=== PATIENT | female | born 1955 | race Caucasian/White ===

== ENCOUNTER → 2019-10-02 17:17 | Outpatient (CLI) | payer BC, SELFPAY ==
--- NOTE | ~2019-10-02 | MM_ITS ---
EXAMINATION: MM screening kike BI w lisa HISTORY: Screening mammogram TECHNIQUE: Craniocaudal and mediolateral oblique 3-D tomosynthesis images were obtained and synthetic 2-D images were generated. CAD analysis was submitted and interpreted. COMPARISON: 05/13/2016 bilateral digital screening mammogram BREAST PARENCHYMAL COMPOSITION: The breasts are heterogeneously dense, which may obscure small masses . FINDINGS: There is no evidence of suspicious mass, calcification, or architectural distortion to sugg est malignancy in either breast. There has been no suspicious interval change. IMPRESSION: 1. No mammographic evidence of malignancy. 2. Recommend routine screening mammography in one year. BI-RADS Category 1: Negative Reviewed, dictated and finalized at location A. SURGEON
== END ==
PROVIDERS: PCP Family Medicine; Visit Provider Physician Assistant
DX: Z12.31 Encounter for screening mammogram for malignant neoplasm of breast (principal)
CPT/HCPCS: 77063; 77067

== ENCOUNTER 2020-11-29 14:30 | Emergency (ER) | payer OTHER, BC, SELFPAY ==
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
[2020-11-29 14:41] VITALS: BP 107/73; PULSE 66; RESP 16; TEMP 36.2; O2SAT 100
== END 2020-11-29 15:39 | disposition home or self-care (01) ==
PROVIDERS: Emergency Provider Nurse Practitioner; PCP Family Medicine
DX: M54.2 Cervicalgia (principal); V67.5XXA Driver of heavy transport vehicle injured in collision with fixed or stationary object in traffic accident, initial encounter; Z87.891 Personal history of nicotine dependence; J44.9 Chronic obstructive pulmonary disease, unspecified; Z96.659 Presence of unspecified artificial knee joint; Z96.649 Presence of unspecified artificial hip joint
CPT/HCPCS: 72050; 99213; G0463

== ENCOUNTER 2022-03-24 14:21 | Outpatient (CLI) | payer OTHER, SELFPAY ==
--- NOTE | ~2022-03-24 | XR_ITS ---
EXAM: XR foot RT min 3V DATE: 03/24/2022 14:42 HISTORY: M79.671 - Pain in right foot . COMPARISON: None available. FINDINGS: Decreased mineralization. No fracture or dislocation. No lytic or blastic lesion. Mild deg enerative changes of first MTP joint and the tibiotalar articulation. Plantar enthesopathy. High arch . No erosion or periosteal change. Soft tissues within normal limits. IMPRESSION: No acute osseous finding in the right foot. Chronic and degenerative changes described ab ove. Reviewed, dictated and finalized at location K. IMPRESSION: No acute osseous finding in the right foot. Chronic and degenerativ e changes described above.
== END 2022-03-24 14:22 ==
LOC: MICIMG 14:23
PROVIDERS: PCP Family Medicine; Visit Provider Nurse Practitioner Family
DX: M79.671 Pain in right foot (principal)
CPT/HCPCS: 73630

== ENCOUNTER 2022-08-05 11:18 | Outpatient (CLI) | payer OTHER, SELFPAY ==
[2022-08-05 12:19] LABS: Influenza A QL RT-PCR Negative (Negative); Influenza B QL RT-PCR Negative (Negative); SARS-CoV-2 RNA PCR Positive
== END 2022-08-05 11:19 | disposition home or self-care (01) ==
LOC: ANHLAB 11:20
PROVIDERS: PCP Family Medicine; Visit Provider Physician Assistant
DX: U07.1 COVID-19 (principal)
CPT/HCPCS: 87636

== ENCOUNTER 2022-08-25 16:16 | Outpatient (CLI) | payer OTHER, SELFPAY ==
--- NOTE | ~2022-08-25 | XR_ITS ---
EXAM: XR lumbar spine min 4V DATE: 08/25/2022 16:49 HISTORY: M53.3 - Sacrococcygeal disorders, not elsewhere classified . COMPARISON: None available. FINDINGS: 5 nonrib-bearing lumbar-type vertebral bodies. Severe lumbar scoliosis. Pedicles intact. N ormal vertebral body alignment. Vertebral body heights preserved. Multilevel moderate-severe disc spa ce narrowing. Vacuum phenomenon at L1-2, L3-4, and L4-5. Multilevel marginal osteophytosis. Multileve l severe facet arthropathy and sclerosis. No pars defect. No fracture or dislocation. Incompletely vi sualized bilateral hip arthroplasties. IMPRESSION: Multilevel severe degenerative disc disease. Multilevel severe facet arthropathy. Reviewed, dictated and finalized at location K. E SALES PERSON IMPRESSION: Multilevel severe degenerative disc disease. Multilevel severe face t arthropathy.
--- NOTE | ~2022-08-25 | XR_ITS ---
EXAM: XR sacrum coccyx min 2V DATE: 08/25/2022 16:49 HISTORY: M53.3 - Sacrococcygeal disorders, not elsewhere classified . COMPARISON: None available. FINDINGS: Severe degenerative disc disease in the lower lumbar spine. Minimal degenerative change in the bilateral SI joints. No acute fracture or dislocation. Chronic appearing posterior displacement of S5 relative to S4. Mild osteitis pubis. Partially visualized bilateral hip arthroplasties. Pelvic phleboliths. IMPRESSION: Posterior dislocation of S5, likely chronic unless accompanied by a history of trauma and acute pain/tenderness. Otherwise unremarkable radiographs of the sacrum and coccyx. Reviewed, dictated and finalized at location K. RACT COORDINATOR IMPRESSION: Posterior dislocation of S5, likely chronic unless accompanied by a history of trauma and acute pain/tenderness. Otherwise unremarkable radiograph s of the sacrum and coccyx.
== END 2022-08-25 16:17 | disposition home or self-care (01) ==
PROVIDERS: PCP Family Medicine; Visit Provider Physician Assistant
DX: M51.36 Other intervertebral disc degeneration, lumbar region (principal); M53.3 Sacrococcygeal disorders, not elsewhere classified; Z91.81 History of falling; X58.XXXA Exposure to other specified factors, initial encounter
CPT/HCPCS: 72110; 72220

== ENCOUNTER 2024-11-06 10:58 | Outpatient (CLI) | payer OTHER, SELFPAY ==
--- NOTE | ~2024-11-06 | XR_ITS ---
XR chest 2V 11/06/2024 11:17 Indication: Chronic obstructive pulmonary disease Procedure: 2 view chest Comparison: 09/18/2016 Findings: Heart size normal. There is right basilar atelectasis/scarring. No focal pneumonia, edema, pleural effusion or thorax. Impression: 1: Linear subsegmental atelectasis/scarring right lung base. Reviewed, dictated and finalized at location A. Impression: 1: Linear subsegmental atelectasis/scarring right lung base.
--- OUTSIDE RECORDS SUMMARY | 2024-11-06 12:48 | XMS_ITS | Referral Summary ---
Author Organization [facility] Address [address] [place] [address] Care Team Providers Care Packaging Mechanic Name Role Phone Mor Anderson MD Primary Care Provider Encounters Date Type Department Care Team Description 09/18/2024 2:30 PM WATERPROOFING SUPERVISOR Office Visit [facility] [address] [place] [address] Irwin Donaldson, PhD Depressive disorder, atypical (Primary Dx); Morbid obesity (HCC); BMI 40.0-44.9, adult (HCC); Osteoarthritis of multiple joints, unspecified osteoarthritis type; Primary hypertension; Hyperlipidemia, unspecified hyperlipidemia type 09/14/2024 Telephone [facility] Minimally Invasive Surgery [facility] [address] [place] [address] Viridiana West CMA from Last 3 Months Allergies No known active allergies Medications ALPRAZolam (XANAX) 1 mg tablet Take by mouth 3 (three) times a day as needed 02/14/2024 Active baclofen (LIORESAL) 10 mg tablet TAKE 1 TABLET BY MOUTH THREE TIMES A DAY NEEDED FOR MUSCLE SPASM 02/10/[address] (CYMBALTA) 60 mg capsule TAKE 1 CAPSULE BY MOUTH EVERY DAY FOR 90 DAYS 03/17/2024 Active gabapentin (NEURONTIN) 600 mg tablet Take 1 tablet (600 mg total) by mouth 3 (three) times a day 04/10/2024 Active pilocarpine (SALAGEN) 5 mg tablet TAKE 1 TABLET BY MOUTH FOUR TIMES DAILY FOR 90 DAYS 03/09/2024 Active traMADoL (ULTRAM) 50 mg tablet Take by mouth every 8 (eight) hours as needed 04/10/2024 Active pravastatin (PRAVACHOL) 40 mg tablet Take 1 tablet (40 mg total) by mouth daily 02/10/2024 Active zolpidem (AMBIEN) 10 mg tablet Take 1 tablet (10 mg total) by mouth nightly as needed 02/14/2024 Active levothyroxine (SYNTHROID) 125 mcg tablet Take 1 tablet (125 mcg total) by mouth daily 02/10/2024 Active metoprolol XL (TOPROL-XL) 50 mg extended release tablet Take 1 tablet (50 mg total) by mouth daily 04/04/2024 Active hydroxychloroqu ine (PLAQUENIL) 200 mg tablet TAKE 1 TABLET ORALLY TWICE A DAY 03/11/2024 Active Active Problems Problem Noted Date Diagnosed Date Morbid obesity 09/18/2024 Depressive disorder, atypical 09/18/2024 BMI 40.0-44.9, adult 05/10/2024 Social History Tobacco Use Types Packs/Day Years Used Date Smoking Tobacco: Former Cigarettes Q uit: 1985 Tobacco Cessation:Counseling Given: Not Answered AUDIT-C Answer Date Recorded Q1: How often do you have a drink containing alc ohol? Monthly or less 05/10/2024 Q2: How many drinks containi ng alcohol do you have on a typical day when you are drinking? 1 or 2 05/10/2024 Q3: How often do you have si x or more drinks on one occasion? Never 05/10/2024 Comments Unknown Sex and Gender Information Value Date Recorded Sex Assigned at Not on file Legal Sex Female 12:40 PM WATERPROOFING SUPERVISOR Gender Identity Female 04/07/2024 2:49 PM CDT Sexual Orientation Straight 04/07/2024 2: 49 PM CDT Last Filed Vital Signs Vital Sign Reading Time Taken Comments Blood Pressure 168/97 05/10/2024 12:56 PM CDT Pulse 78 05/10/2024 12:56 PM CDT Temperature 36.9 C (98.5 F) 05/10/2024 12:54 PM CDT Respiratory Rate - - Oxygen Saturation 95% 05/10/2024 12: 54 PM CDT Inhaled Oxygen Concentration - - Weight 128.3 kg (282 lb 12.8 oz) 2023 12:54 PM CDT Height 170.2 cm (5' 7 ) 05/10/2024 12:5 4 PM CDT Body Mass Index 44.29 05/10/2024 12:54 PM CDT Plan of Treatment Not on file Procedures Procedure Name Priority Date/Time Associated Diagnosis Comments SCREENING MAMMOGRAM BILATERAL W DUY Schedule Routine, Read Routine (OP Routine) 08/04/2024 3:46 PM WATERPROOFING SUPERVISOR Screening mammogram, encounter for from Last 3 Months or Most Recently Relevant to Health Maintenance Results * Screening Mammogram Bilateral W Duy (08/04/2024 3:46 PM WATERPROOFING SUPERVISOR) Anatomical Region Laterality Modality Breast Bilateral Mammography 08/08/2024 10:1 5 AM WATERPROOFING SUPERVISOR Impressions 08/08/2024 10:15 AM WATERPROOFING SUPERVISOR There is no mammographic evidence of malignancy. A 1 year screening mammogram is recommended. BI-RADS: 1 - Negative. The patient has been or will be contacted. The patient will be entered into a reminder system with a target due date of 1 year for her next mammogram. Electronically signed by: Shauna Tucker M.D. Narrative 08/08/2024 10:15 AM WATERPROOFING SUPERVISOR EXAMINATION: SCREENING MAMMOGRAM BILATERAL W DUY ORDERING HEALTHCARE PROVIDER: SELF SCREENING MAMMOGRAM HISTORY: Routine screening mammography. COMPARISON: 10/02/2019 TECHNIQUE: CC and MLO views of the bilateral breasts were obtained with digital technique using breast tomosynthesis with C view. Computer aided detection was utilized. FINDINGS: DENSITY: There are scattered areas of fibroglandular density. BREASTS: There are no suspicious masses, suspicious calcifications, or other suspicious findings in either breast. There has been no suspicious interval change. us Self Screening Mammogram IMG MAMMO PROCEDURES Fi nal Result from Last 3 Months or Most Recently Relevant to Health Maintenance Insurance Care Teams Packaging Mechanic Relationship Specialty Start Date End Date Mor Anderson MD [address] [place] [address] PCP - General Family Medicine 12/02/23
--- OUTSIDE RECORDS SUMMARY | 2024-11-06 12:48 | XMS_ITS | Clinical Summary ---
Author Organization [facility] Address [address] [place] [address] Care Team Providers Care Chyron Operator Name Role Phone Unavailable Primary Care Provider Unavailabl e Social History Tobacco Use Types Packs/Day Years Used Date Smoking Tobacco: Never Assessed Comments Unknown Sex and Gender Information Value Date Recorded Sex Assigned at Not on file Legal Sex Female 8:02 PM CDT Gender Identity Not on file Sexual Orientation Not on file Plan of Treatment Health Maintenance Due Date Last Done Comments Colorectal Cancer Screening Colonoscopy (10 Years) 1956 Hepatitis C 1974 DTaP, Tdap and Td Vaccines ( 1 - Tdap) 1975 Mammogram Screening 1996 Zoster Vaccines (1 of 2) 2006 Dexa Scan (General) 2021 Pneumococcal Vaccine: 65+ Ye ars (1 of 1 - PCV) 2021 COVID-19 Vaccine ( - 2023-2 5 season) 2024 RSV Immunization or 60+ Years (1 - 1-dose 75+ series) 2031 Meningococcal B Vaccine Aged Out No l onger eligible based on patient's age to complete this topic Meningococcal Vaccine Aged Out No tamia lynda eligible based on patient's age to complete this topic RSV Immunizations Under 20 Months Aged Out No longer eligible based on patient's age to complete this topic Insurance [facility]
--- OUTSIDE RECORDS SUMMARY | 2024-11-06 12:48 | XMS_ITS | Clinical Summary ---
Author Organization [facility] Address [address] [place] [address] Care Team Providers Care Beer Coil Cleaner Name Role Phone Mor Anderson MD Primary Care Provider [phone] Source Comments [facility],non-owned Affiliates and Associated Physician Practices is amultiple site organization consisting of ambulatory clinics and hospital sitesin [place], [place], [place] and [place]. This disclosure is being madepursuant to the Care Everywhere program and may not contain all information available regarding this patient. Last updated 18.[facility] Social History Tobacco Use Types Packs/Day Years Used Date Smoking Tobacco: Never Assessed Sex and Gender Information Value Date Recorded Sex Assigned at Not on file Gender Identity Not on file Sexual Orientation Not on file Plan of Treatment Health Maintenance Due Date Last Done Comments BONE DENSITY TESTING 1955 COLOGUARD (AGES 45-75) - COL ON CA SCREENING 1956 COLON MONITORING 1956 COLONOSCOPY - COLON CA SCREENING 1956 CT COLONOGRAPHY - COLON CA SCREENING 1956 Colorectal Cancer Screening 1956 FIT - COLON CA SCREENING 1956 FLEX SIG - COLON CA SCREENING 1956 LIPID TESTING 1956 MAMMOGRAM 1956 HEPATITIS C SCREENING 06/13/1974 DTAP/TDAP/TD VACCINES (1 - Tdap) 1975 PNEUMOCOCCAL VACCINE 50+ (1 of 1 - PCV) 2006 ZOSTER VACCINE (1 of 2) 2006 COVID-19 VACCINE ( - 2023-2 5 season) 2024 DEPRESSION SCREENING 08/02/2024 INFLUENZA VACCINE (Season Ended) 2025 Respiratory Syncytial Virus (RSV) Vaccine Pt: or over 60 yrs (1 - 1-dose 75+ series) 2031 HEPATITIS B VACCINE Aged Out No longe r eligible based on patient's age to complete this topic HIB VACCINE Aged Out No longer eligi ble based on patient's age to complete this topic HPV VACCINE Aged Out No longer eligi ble based on patient's age to complete this topic MENINGOCOCCAL (Group B) VACC INE SHARED DECISION-MAKING Aged Out No longer eligibl e based on patient's age to complete this topic MENINGOCOCCAL GROUPS A/C/Y/W VACCINE Aged Out No longer eligible b ased on patient's age to complete this topic Care Teams Beer Coil Cleaner Relationship Specialty Start Date End Date Mor Anderson MD [address] [place] [address] PCP - General 05/27/18
--- OUTSIDE RECORDS SUMMARY | 2024-11-06 12:48 | XMS_ITS | Clinical Summary ---
Author Organization [facility] Address [address] [place] [address] Care Team Providers Care Electrolysis Engineer Name Role Phone Mor Anderson MD Primary Care Provider Allergies No known active allergies Medications ALPRAZolam [...] disorder, atypical 09/18/2024 BMI 40.0-44.9, adult 05/10/2024 Encounters Date Type Department Care Team Description 09/18/2024 2:30 PM CORRECTION OFFICER HEAD Office Visit [facility] [address] [place] [address] Irwin Donaldson, PhD Depressive disorder, atypical (Primary Dx); Morbid obesity (HCC); BMI 40.0-44.9, adult (HCC); Osteoarthritis of multiple joints, unspecified osteoarthritis type; Primary hypertension; Hyperlipidemia, unspecified hyperlipidemia type 09/14/2024 Telephone [facility] Minimally Invasive Surgery [address] [facility] [address] [place] [address] Viridiana West CMA from Last 3 Months Surgical History Surgery Date Site/Laterality Comments DIAGNOSTIC LAPAROSCOPY 1984 HYSTERECTOMY 2001 Medical History Medical History Date Comments Anxiety 1997 Arthritis 1994 Asthma 1984 COPD (chronic obstructive pulmonary disease) (HC C) 1999 Depression 1997 Hypertension 1999 Joint pain 1994 Kidney stone 2011 Low back pain 1989 Morbid obesity (HCC) 1997 Neuromuscular disorder (HCC) 2014 Obesity 1979 Thyroid disease 1984 Urinary incontinence 1994 Hypercholesteremia Family History Medical History Relation Name Comments Alcohol abuse Father Bruce Lau Cancer Father Bruce Lau Stroke Father Bruce Lau Cancer Maternal Grandfather Bruce, Sr. Arthritis Maternal Grandmother Arabella Lau Diabetes Maternal Grandmother Arabella Lau Breast cancer Mother Mother Cancer Mother Mother Breast cancer Paternal Grandmother Grandmother Relation Name Status Comments Father Bruce Lau Maternal Grandfather Bruce, Sr. Maternal Grandmother Arabella Lau Mother Mother Paternal Grandmother Grandmother Social History Tobacco Use Types Packs/Day Years [...] on file Legal Sex Female 12:40 PM CORRECTION OFFICER HEAD Gender Identity Female 04/07/2024 2:49 PM CDT Sexual Orientation Straight 04/07/2024 2: 49 PM CDT Obstetrics History Para Term AB IAB SAB Ectopic Multiple Livin g Live Births 4 1 1 Date Outcome GA Total Labor Labor/2nd/3rd Weight Sex Type Anes PTL Angelina A1 A5 Name Clin Term Last Filed Vital Signs Vital Sign Reading [...] 05/10/2024 12:54 PM CDT Plan of Treatment Health Maintenance Due Date Last Done Comments Colon Cancer Screening-Colonoscopy 1956 Depression Screening 1956 Fall Risk Assessment 1956 Hepatitis C Screening 1956 Osteoporosis Screening-Bone Density Scan 1956 DTaP/Tdap/Td Vaccine (1 - Tdap) 1967 Hepatitis B Screening 1974 Pneumococcal vaccine 65+ (1 of 2 - PCV) 1975 Zoster Vaccine (1 of 2) 1975 Covid-19 Vaccine (3 - Moderna risk series) 01/14/2021 12/17/2020, 11/19/2020 Well Visit 65+ 2021 Influenza Vaccine (Season Ended) 2025 Breast Cancer Screening-Mammogram 08/04/2025 025 Procedures Procedure Name Priority Date/Time Associated Diagnosis Comments SCREENING MAMMOGRAM BILATERAL W DUY Schedule Routine, Read Routine (OP Routine) 08/04/2024 3:46 PM CORRECTION OFFICER HEAD Screening mammogram, encounter for from Last 3 Months or Most Recently Relevant to Health Maintenance Results * Screening Mammogram Bilateral W Duy (08/04/2024 3:46 PM CORRECTION OFFICER HEAD) Anatomical Region Laterality Modality Breast Bilateral Mammography 08/08/2024 10:1 5 AM CORRECTION OFFICER HEAD Impressions 08/08/2024 10:15 AM CORRECTION OFFICER HEAD There is no mammographic evidence of malignancy. A 1 year screening mammogram is recommended. BI-RADS: 1 - Negative. The patient has been or will be contacted. The patient will be entered into a reminder system with a target due date of 1 year for her next mammogram. Electronically signed by: Shauna Tucker M.D. Narrative 08/08/2024 10:15 AM CORRECTION OFFICER HEAD EXAMINATION: SCREENING MAMMOGRAM BILATERAL W DUY ORDERING [...] Most Recently Relevant to Health Maintenance Insurance [facility] Care Teams Electrolysis Engineer Relationship Specialty Start Date End Date Mor Anderson MD [address] [place] [address] PCP - General Family Medicine 12/02/23
== END 2024-11-06 10:59 | disposition home or self-care (01) ==
PROVIDERS: PCP Family Medicine; Visit Provider Nurse Practitioner Family
DX: J44.9 Chronic obstructive pulmonary disease, unspecified (principal); Z01.818 Encounter for other preprocedural examination
CPT/HCPCS: 71046

== ENCOUNTER 2024-12-01 10:12 | Outpatient (CLI) | payer OTHER, SELFPAY ==
--- NOTE | 2024-12-01 16:04 | WPDPFTINT ---
PFT Procedure Performed PFT Procedure Performed Spirometry with Pre/Post Bronchodilator Plethysmography (Lung Vol) Diffusing Cap (DLCO) Flow Vol Loop PFT Interpretation This is a pulmonary function test with pre and post-bronchodilator spirometry, plethysmography and diffusing capacity. The test was performed and results interpreted in accordance with the 2019 and 2005 ATS/ERS Task Force guidelines respectively using the Global Lung Function Initiative-2012 reference equations. Patient demonstrated good effort and cooperation. Reproducibility criteria were met. The quality of the pre bronchodilator spirometry maneuver was Grade A and post bronchodilator spirometry maneuver was Grade A. Findings: Spirometry: There is decreased maximal expiratory airflow at all lung volumes with concave expiratory flow tracing. The contour the inspiratory flow tracing is normal. The pre bronchodilator FVC is 2.79 L, 86% predicted. The pre bronchodilator FEV1 is 1.52 L, 61% predicted. The pre bronchodilator FEV1: FVC ratio is 54%. The post bronchodilator FVC is 2.90 L, representing a 4% increase. The post bronchodilator FEV1 is 1.64 L, representing an 8% increase. The post bronchodilator FEV1: FVC ratio is 57%. Plethysmography: The total lung capacity is 5.42 L, 99% predicted. The functional residual capacity is 2.71 L, 86% predicted. The residual volume is 2.49 L, 109% predicted. Diffusing capacity: The diffusing capacity unadjusted for hemoglobin and carboxyhemoglobin is 16.7, 76% predicted. The diffusing capacity adjusted for alveolar volume is 3.38, 81% predicted. In comparison to previous pulmonary function testing on 02/04/2015, the post bronchodilator FVC is unchanged from 3.00 L to 2.90 L. The post bronchodilator FEV1 is decreased from 2.01 L to 1.64 L. The total lung capacity is unchanged from 6.08 to 5.42. The functional residual capacity is unchanged from 3.00 L to 2.71 L. The residual volume is decreased from 2.84 L to 2.49 L. The diffusing capacity unadjusted for hemoglobin and carboxyhemoglobin is unchanged from 18.7 to 16.7. The diffusing capacity adjusted for alveolar volume is unchanged from 3.58 to 3.38. Impression: There is a moderate obstructive abnormality. There is no significant improvement after inhaling a single dose of albuterol. The lung volumes are normal. The diffusing capacity is normal. In comparison to previous pulmonary function testing on 02/04/2015, there has been no significant change in the FVC, total lung capacity, functional residual capacity and diffusing capacity. There has been a decrease in the FEV1 that is consistent with the normal age related decrease. The residual volume is significantly decreased and normally the residual volume increases with age. Clinical correlation is recommended.
--- OUTSIDE RECORDS SUMMARY | 2024-12-02 11:46 | XMS_ITS | Clinical Summary ---
Author Organization [facility] Address [address] [place] [address] Care Team Providers Care Assembler Clip On Sunglasses Name Role Phone Mor Anderson MD Primary Care Provider Source Comments [facility] [employer],non-owned Affiliates and Associated Physician Practices is amultiple site organization consisting of ambulatory clinics and hospital sitesin [place], [place], [place] and [place]. This disclosure is being madepursuant to the Care Everywhere program and may not contain all information available regarding this patient. Last updated 18.[facility] [employer] Social History Tobacco Use Types Packs/Day Years Used Date Smoking Tobacco: Never Assessed Comments Unknown Sex and Gender Information Value Date Recorded Sex Assigned at Not on file Legal Sex Female 6:00 AM SOCIAL WORK THERAPIST Gender Identity Not on file Sexual Orientation [...] patient's age to complete this topic Insurance ANTH Care Teams Assembler [employer] Sunglasses Relationship Specialty Start Date End Date Mor Anderson MD [address] [place] [address] PCP - General 05/27/18
--- OUTSIDE RECORDS SUMMARY | 2024-12-02 11:46 | XMS_ITS | Clinical Summary ---
Author Organization [facility] Address [address] [place] [address] Care Team Providers Care Neurosurgery Spine Physician Name Role Phone Mor Anderson MD Primary [...] Encounters Date Type Department Care Team Description 11/28/[address] [facility] Pediatric Surgery [facility] 2nd [place] [address] [place] [address] Polo Pires NP Medical Question/Miscellaneous 11/22/2024 Telephone [facility] Minimally Invasive Surgery [address] [facility] [address] 12th Floor, [place] [address] Polo Pires NP Medical Question/Miscellaneous 09/18/2024 2:30 PM GRUBBER Office Visit [facility] Pain Management [address] [place] [address] Irwin Donaldson, PhD Depressive disorder, atypical (Primary Dx); Morbid obesity (HCC); BMI 40.0-44.9, adult (HCC); Osteoarthritis of multiple joints, unspecified osteoarthritis type; Primary hypertension; Hyperlipidemia, unspecified hyperlipidemia type 09/14/2024 Telephone [facility] Minimally Invasive Surgery [address] [facility] [address] [place] [address] Viridiana West CMA from Last 3 Months Surgical History Surgery Date Site/Laterality Comments DIAGNOSTIC LAPAROSCOPY 1985 HYSTERECTOMY 2001 Medical History Medical History Date Comments Anxiety 1997 Arthritis 1994 Asthma 1984 COPD (chronic obstructive pulmonary disease) (HC C) 1999 Depression 1997 Hypertension 1999 Joint pain 1994 Kidney stone 2011 Low back pain 1989 Morbid obesity (HCC) 1997 Neuromuscular disorder (HCC) 2014 Obesity 1980 Thyroid disease 1985 Urinary incontinence 1994 Hypercholesteremia Family History Medical [...] on file Legal Sex Female 12:40 PM GRUBBER Gender Identity Female 04/07/2024 2:49 PM CDT [...] Read Routine (OP Routine) 08/04/2024 3:46 PM GRUBBER Screening mammogram, encounter for from Last 3 Months or Most Recently Relevant to Health Maintenance Results * Screening Mammogram Bilateral W Duy (08/04/2024 3:46 PM GRUBBER) Anatomical Region Laterality Modality Breast Bilateral Mammography 08/08/2024 10:1 5 AM GRUBBER Impressions 08/08/2024 10:15 AM GRUBBER There is no mammographic evidence of malignancy. A 1 year screening mammogram is recommended. BI-RADS: 1 - Negative. The patient has been or will be contacted. The patient will be entered into a reminder system with a target due date of 1 year for her next mammogram. Electronically signed by: Shauna Tucker M.D. Narrative 08/08/2024 10:15 AM GRUBBER EXAMINATION: SCREENING MAMMOGRAM BILATERAL W DUY ORDERING [...] Most Recently Relevant to Health Maintenance Insurance HEALTHCARE Care Teams Neurosurgery Spine Physician Relationship Specialty Start Date End Date Mor Anderson MD [address] [facility] [address] [place] [address] PCP - General Family Medicine 12/02/23
--- OUTSIDE RECORDS SUMMARY | 2024-12-02 11:46 | XMS_ITS | Clinical Summary ---
Author Organization [facility] Address [address] [place] [address] Care Team Providers Care Plant Control Operator Name Role Phone Unavailable Primary Care [...] 1 - Tdap) 1975 Mammogram Screening 1996 Pneumococcal Vaccine: 50+ Ye ars (1 of 1 - PCV) 2006 Zoster Vaccines (1 of 2) 2006 Dexa Scan (General) 2021 COVID-19 Vaccine ( - 2023-2 5 [...] patient's age to complete this topic Insurance [facility]
--- OUTSIDE RECORDS SUMMARY | 2024-12-02 11:46 | XMS_ITS | Patient Health Record ---
Author Organization [facility] Address [address] [place] [address] Care Team Providers Care Small Products Ii Assembler Name Role Phone Grayson Estrada Unavailable [phone] Migration, Provider Unavailable Unavailable Allergies No Known Allergies Results Component Value Reference Range Notes UDT Reviewed date:09/06/2024 04:52:50 PM Interpretation: Performing Lab: Notes/Report: THC N 0 - 50 ng/ml Cocaine N 0 - 300 ng/ml Amphetamine N 0 - 1000 ng/ml Buprenorphine (BUP) N 0 - 10 ng/ml Secobarbital (Bar) N 0 - 300 ng/ml Oxazepam (BZO) P 0 - 300 ng/ml 3-ecifnpvvdu-8,3-kanlrmta-7,3-diphenylpyrrolidine (TERESE P) N 0 - 300 ng/ml Methamphetamine (MET) N 0 - 1000 ng/ml Methylenedioxymethamphetamine (MDMA) N 0 - 500 ng/ml Morphine (MOP 300/OLW0148) N 0 - 300 ng/ml Methadone (MTD) N 0 - 300 ng/ml Phencyclidine (PCP) N 0 - 25 ng/ml Nortriptyline (TCA) N 0 - 1000 ng/ml Oxycodone N 0 - 300 ng/ml x N 0 - 300 ng/ml Reason For Referral No Information Medications Medication SIG (Take, Route, Frequency, Duration) Notes Start Date End Date Status Baclofen 10 MG Oral 11/18/2023 Acti ve Metoprolol Succinate ER 50 MG Oral 11/18/2023 Active DULoxetine HCl 60 MG 1 capsule Oral Once a day for 90 days Active ProAir HFA 108 (90 Base) MCG/ACT Inhalation 11/18/2023 Active buPROPion HCl ER (XL) 300 MG 1 tablet every morning Oral Once a day for 90 days 11/18/2023 Active ALPRAZolam 1 MG Oral 11/18/2023 Act ian traMADol HCl 50 MG Oral 11/18/2023 Active Hydroxychloroquine Sulfate 200 MG Oral 11/18/2023 Active Benzonatate 100 MG Oral 11/18/2023 Active Zolpidem Tartrate 10 MG Oral 11/18/2023 Active Levothyroxine Sodium 125 MCG Oral 11/18/2023 Active Nitrofurantoin Monohyd Macro 100 MG Oral 11/18/2023 Active Pravastatin Sodium 40 MG Oral 11/18/2023 Active Gabapentin 600 MG Oral 11/18/2023 A ctive Paxlovid (300/100) 20 x 150 MG & 10 x 100MG Oral *Reorder from groopify for eRx and Interaction Alerts* 11/18/2023 Active Pilocarpine HCl 5 MG Oral 11/18/2023 Active Immunizations Vaccine Route Administration Date Status Comme nts Moderna Covid-19 Vaccine 1st dose Unknown 11/19/2020 Ad ministered Moderna Covid-19 Vaccine 1st dose Unknown 12/17/2020 Ad ministered Social History Tobacco Use: Social History Observation Description Date Details (start date - stop date) Never Smoker NA - NA Sex Assigned At : Social History Observation Description Sex Assigned At Female Tobacco Control (Standard) Question Answer Notes Tobacco use: Nonsmoker How long has it been since you last smoked? Eulogioa ter than 10 years AUDIT-C (Standard) Question Answer Notes Points 2 Interpretation Positive Did you have a drink contain ing alcohol in the past year? Yes How often did you have six o r more drinks on one occasion in the past year? Less than monthly (1 point) How many drinks did you have on a typical day when you were drinking in the past year? 1 or 2 drinks (0 point) How often did you have a dri nk containing alcohol in the past year? Monthly or less (1 point) Problems Problem Type SNOMED Code ICD Code Onset Dates Problem Status W/U Status Risk Notes Problem Mild recurrent major depression (61282376) Major depressive disorder, recurrent, mild (F33.0) Active confirmed Problem Generalized anxiety disorder (F41.1) 4 Active confirmed Problem Insomnia disorder related to another mental disorder (02852711) Insomnia due to other mental disorder (F51.05) 4 Active confirmed Vital Signs Heart Rate 80 /min 09/06/2024 Height-cm 170.18 cm 09/06/2024 Blood pressure diastolic 100 mm Hg 09/06/2024 Weight-kg 129.73 kg 09/06/2024 Height 67.00 in 09/06/2024 Blood pressure systolic 160 mm Hg 09/06/2024 Weight 286 lbs 09/06/2024 BMI 44.79 kg/m2 09/06/2024 Encounters Encounter Location Date Provider Diagnosis [facility] [employer] [facility] [address] [address] 09/06/2024 Grayson Estrada Benign essential HTN I10 ; Generalized anxiety disorder F41.1 ; Major depressive disorder, recurrent, mild F33.0 and Insomnia due to other mental disorder F51.05 [facility] [employer] [place] [address] [address] 12/18/2023 Provider Migration [facility] [employer] [place] [address] [address] 12/19/2023 Provider Migration [facility] [employer] [facility] [address] [address] 07/19/2024 Grayson Estrada Generalized anxiety disorder F41.1 [facility] [employer] [place] [address] [address] 07/24/2024 Grayson Estrada Major depressive disorder, recurrent, mild F33.0 Assessments Encounter Date Diagnosis (ICD Code) Assessment Notes Treatment Notes Treatment Clinical Notes Section Notes 07/19/2024 Generalized anxiety disorder (ICD-10 - F41.1) 07/24/2024 Major depressive disorder, recurrent, mild (ICD-10 - F33.0) 09/06/2024 Benign essential HTN (ICD-10 - I10) 09/06/2024 Generalized anxiety disorder (ICD-10 - F41.1) Alprazolam 1mg tid prn by pcp 09/06/2024 Major depressive disorder, recurrent, mild (ICD-10 - F33.0) 09/06/2024 Insomnia due to other mental disorder (ICD-10 - F51.05) zolpidem 10mg hs prn by PCP 09/06/2024 Other Learning About Depression Screening material was printed 1. Obesity and weight loss surgery consideration: - Patient is considering weight loss surgery at [facility] - Scheduled for a psychological evaluation to ensure understanding of necessary lifestyle changes. Plan: - Encourage patient to continue pursuing weight loss surgery. - Follow through with the psychological evaluation. 2. Chronic pain: - Patient reports pain and difficulty with mobility due to obesity. Plan: - Continue to monitor pain levels. - Encourage weight loss surgery as a potential solution to alleviate pain and improve mobility. 3. Depression and anxiety: - Patient is currently on duloxetine 60 mg and bupropion 300 mg, both reportedly effective. - Taking Xanax as needed, prescribed by primary care provider. Plan: - Continue current medications. - Monitor for any changes in mood or anxiety levels. - Continue to monitor Xanax usage and effectiveness. 4. Insomnia: - Patient is currently taking zolpidem for sleep and reports needing a refill. Plan: - Ensure patient picks up the refill at [facility]. - Continue to monitor sleep patterns and effectiveness of medication. 5. Follow-up: - Schedule a follow-up appointment in 6 months to assess patient's progress, medication effectiveness, and weight loss surgery status. - Encourage patient to reach out sooner if any concerns or changes in their condition arise. Plan Of Treatment No Information Insurance Providers Payer Name Payer Address Payer Phone Subscriber Number Group Number Insured Name Patient Relationship to Insured Coverage Start Date Coverage End Date [employer] Medicare Replacement/ Advantage - Hmo [address] [place] [address] [id number] JENI GUDINO Self - patient is the insured Medical (General) History Medical History History ICD Code Problems: Generalized anxiety disorder Insomnia disorder related to another men ashlyn disorder Mild recurrent major depression Moderate recurrent major depression , Past Psychiatric History: Anxiety Disord er abdominal aortic aneurysm: No atrial fibrillation: No chronic fatigue syndrome: No essential tremor: No hyperlipidemia: No hypertension: No Parkinson's disease: No restless leg syndrome: No stroke: No subdural hematoma: No type 1 diabetes mellitus: No type 2 diabetes mellitus: No vitamin B12 deficiency: No vitamin D deficiency: No Surgical History Surgery Date(Month/Year) Any surgical history Other Endometrial ablation (85962) 08/02/1986 Hysterectomy (30502) 08/02/2002 Other 08/02/2009 Cataract surgery (91079) 08/02/2019
--- OUTSIDE RECORDS SUMMARY | 2024-12-02 11:46 | XMS_ITS | Encounter Summary ---
Author Organization [facility] Address [address] [facility] [address] [place] [address] Phone Care Team Providers Care Band Saw Marker Name Role Phone Mor Anderson MD Primary Care Provider Reason for Visit * Reason Onset Date Comments Medical Question/Miscellaneous 11/22/2024 Encounter Details Date Type Department Care Team (Late st Contact Info) Description 11/22/2024 Telephone [facility] ([facility]) - [facility] Minimally Invasive Surgery [address] [facility] 12th Floor, [place] [address] Polo Pires, BOAT WORKER [address] [facility] [phone] [place] [address] Medical Question/Miscellaneous Social History Tobacco Use Types Packs/Day Years Used Date Smoking Tobacco: Former Cigarettes Q uit: 1984 AUDIT-C Answer Date Recorded Q1: How often [...] on file Legal Sex Female 12:40 PM FILTER PRESS PUMPER Gender Identity Female 04/07/2024 2:49 PM CDT Sexual Orientation Straight 04/07/2024 2: 49 PM CDT documented as of this encounter Miscellaneous Notes * Telephone Encounter - Rea Faust - 11/22/2024 1:56 PM CDT Patient Query: Was an attempt to transfer to the assigned clinical staff or backline? no Reason for call?: Patient is enquiring what they have left to do from the next steps form please (Read message back to caller and ask them if there is anything else they'd like to add to the message) Who is the caller: Gail Almendarez What is the best number for them to contact for a call back: [phone] Last office visit: Visit date not found Date of Surgery: No surgery found documented in this encounter Plan of Treatment Not on file documented as of this encounter Visit Diagnoses Not on filedocumented in this encounter Care Teams Band Saw Marker Relationship Specialty Start Date End Date Mor Anderson MD [address] [facility] [address] [address] PCP - General Family Medicine 12/02/23 documented as of this encounter
--- OUTSIDE RECORDS SUMMARY | 2024-12-02 11:46 | XMS_ITS | Encounter Summary ---
Author Organization [facility] Address [address] [place] [address] Phone Care Team Providers Care Toby Maker Name Role Phone Mor Anderson MD Primary Care Provider Reason for Visit * Reason Onset Date Comments Medical Question/Miscellaneous 11/28/2024 Encounter Details Date Type Department Care Team (Late st Contact Info) Description 11/28/2024 Telephone [facility] Pediatric Surgery [facility] 2nd [place] [address] [place] [address] Polo Pires, MATERIALS AND PROCESSES MANAGER [address] [facility] [phone] [place] [address] Medical Question/Miscellaneous Social History Tobacco Use Types Packs/Day Years Used Date Smoking Tobacco: Former Cigarettes Q uit: 1985 AUDIT-C Answer Date Recorded Q1: How often [...] on file Legal Sex Female 12:40 PM CENTERPUNCHER Gender Identity Female 04/07/2024 2:49 PM CDT Sexual Orientation Straight 04/07/2024 2: 49 PM CDT documented as of this encounter Miscellaneous Notes * Telephone Encounter - Charly Lord - 11/28/2024 3:41 PM CDT Patient Query: Was an attempt to transfer to the assigned clinical staff or backline? No Reason for call?: Patient calling to speak with someone to find out where she needs to go to complete the Hpylori Breath Test (Read message back to caller and ask them if there is anything else they'd like to add to the message) Who is the caller: Gail What is the best number for them to contact for a call back: [phone] Last office visit: Visit date not found Date of Surgery: No surgery found documented in this encounter Plan of Treatment Not on file documented as of this encounter Visit Diagnoses Not on filedocumented in this encounter Care Teams Toby Maker Relationship Specialty Start Date End Date Mor Anderson MD [address] [facility] [address] [place] [address] PCP - General Family Medicine 12/02/23 documented as of this encounter
--- OUTSIDE RECORDS SUMMARY | 2024-12-02 11:46 | XMS_ITS | Referral Summary ---
Author Organization [facility] Address [address] [place] [address] Care Team Providers Care Advertising Internship Name Role Phone Mor Anderson MD Primary Care Provider Encounters Date Type Department Care Team Description 11/28/2024 Telephone [facility] Pediatric Surgery [facility] 2nd [place] [address] [place] [address] Polo Pires, KINGSLEY Medical Question/Miscellaneous 11/22/2024 Telephone [facility] Minimally Invasive Surgery [address] [facility] 12th Floor, [place] [address] Polo Pires NP Medical Question/Miscellaneous 09/18/2024 2:30 PM PROSTHODONTIST Office Visit [facility] Pain Management [address] [place] [address] Irwin Donaldson, PhD Depressive disorder, atypical (Primary Dx); Morbid obesity (HCC); BMI 40.0-44.9, adult (HCC); Osteoarthritis of multiple joints, unspecified osteoarthritis type; Primary hypertension; Hyperlipidemia, unspecified hyperlipidemia type 09/14/2024 Telephone [facility] Minimally Invasive Surgery [address] [facility] [address] [place] [address] Viridiana West CMA from Last [...] on file Legal Sex Female 12:40 PM PROSTHODONTIST Gender Identity Female 04/07/2024 2:49 PM CDT [...] Read Routine (OP Routine) 08/04/2024 3:46 PM PROSTHODONTIST Screening mammogram, encounter for from Last 3 Months or Most Recently Relevant to Health Maintenance Results * Screening Mammogram Bilateral W Duy (08/04/2024 3:46 PM PROSTHODONTIST) Anatomical Region Laterality Modality Breast Bilateral Mammography 08/08/2024 10:1 5 AM PROSTHODONTIST Impressions 08/08/2024 10:15 AM PROSTHODONTIST There is no mammographic evidence of malignancy. A 1 year screening mammogram is recommended. BI-RADS: 1 - Negative. The patient has been or will be contacted. The patient will be entered into a reminder system with a target due date of 1 year for her next mammogram. Electronically signed by: Kaylen Modi 08/08/2024 10:15 AM PROSTHODONTIST EXAMINATION: SCREENING MAMMOGRAM BILATERAL W DUY ORDERING [...] Recently Relevant to Health Maintenance Insurance HEALTH[employer]ARE HEALTHCARE Care Teams Advertising Internship Relationship Specialty Start Date End Date Mor Anderson MD [address] [facility] [address] [facility] [address] [place] [address] PCP - General Family Medicine 12/02/23
--- OUTSIDE RECORDS SUMMARY | 2024-12-02 11:46 | XMS_ITS ---
Author Organization [facility] As [employer] [facility] Address [address] [facility] [address] [place] [address] Care Team Providers Care Computer Drafter Name Role Phone Sean Grayson Unavailable [phone] Social History Sex Assigned At : Social History Observation Description Sex Assigned At Female Encounters Encounter Location Date Provider Diagnosis [facility] [place] [address] [facility] [address] [facility] [address] [place] [address] 08/22/2024 Grayson Estrada Plan Of Treatment No Information Progress Notes * JENI GUDINO MDOB:1954 (69 yo F)Acc No.[id number]:08/22/2024 Patient: JENI MARTINS Provider: BEATRIZ RIVERA :1955 A ge:69 Y S ex:Female Date:08/22/2024 Address[address] [facility] Subjective: * Chief Complaints: * * Medical History: Objective: * Vitals: Assessment: Plan: * Treatment: * Billing Information: * Visit Code: * Procedure Codes: * Electronic signature of BEATRIZ Chapa on 12/02/2024 at 11:45 AM CDT Sign off status: Pending * Provider: BEATRIZ RIVERA Date: 0 08/22/2024 Generated for Maryami ng/Facyndig/eTransmitting on: 0 12/02/2024 11:45 AM CDT
== END 2024-12-01 10:13 | disposition home or self-care (01) ==
PROVIDERS: PCP Family Medicine; Visit Provider Nurse Practitioner Family
DX: J44.9 Chronic obstructive pulmonary disease, unspecified (principal); R94.2 Abnormal results of pulmonary function studies
CPT/HCPCS: 94060; 94726; 94729

== ENCOUNTER 2025-01-17 14:40 | Outpatient (CLI) | payer OTHER, SELFPAY ==
--- NOTE | ~2025-01-17 | XR_ITS ---
CHEST RADIOGRAPH, PA AND LATERAL CLINICAL HISTORY: W19.XXXA - Unspecified fall, initial encounter . COMPARISON: 11/06/2024 6 TECHNIQUE: PA and lateral views of the chest. FINDINGS The cardiomediastinal silhouette is partially obscured. Large left-sided pleural effusion, an interval change from prior examination. The remainder of the lungs are clear. IMPRESSION: Large left-sided pleural effusion, an interval change. Reviewed, dictated and finalized at location A.
--- OUTSIDE RECORDS SUMMARY | 2025-01-17 16:36 | XMS_ITS | Clinical Summary ---
Author Organization [facility] Address [address] [place] [address] Care Team Providers Care Lap Winder Name Role Phone Mor Anderson MD Primary [...] Encounters Date Type Department Care Team Description 01/17/2025 Telephone [facility]) [facility] Minimally Invasive Surgery [address] [place] [address] 12th Floor, [place] [phone] Scar Schwartz MD Medical Question/Miscellaneous 01/05/2025 Telephone [facility]) [facility] Minimally Invasive Surgery [address] [place] [address] 12th Floor, [place] [phone] Polo Pires NP Medical Question/Miscellaneous 01/05/2025 Telephone [facility] Minimally Invasive [facility] Medical Office Building [address] [place] [phone] Viridiana West CMA 12/29/2024 Telephone [facility]) [facility] Minimally Invasive Surgery [address] [place] [address] 12th Floor, [place] [phone] Polo Pires NP Lab Results 12/22/2024 Results Follow-Up [facility] Minimally Invasive Surgery [address] [place] [address] Medical Office Building [address] [place] [address] Polo Pires NP Ferritin, Iron profile w/ IBC, Vitamin B12, Additional followed-up results: 9 12/21/2024 1:10 PM CDT Lab [facility] [address] [place], [place] [id number] BMI 40.0-44.9, adult (HCC); Morbid obesity (HCC); Osteoarthritis of multiple joints, unspecified osteoarthritis type; Primary hypertension; Hyperlipidemia, unspecified hyperlipidemia type; Abnormal finding of blood chemistry, unspecified 11/28/2024 Telephone [facility] Pediatric Surgery [address] [facility] [address] 2nd [place] [address] [place] [phone] Polo Pires NP Medical Question/Miscellaneous 11/22/2024 Telephone [facility] Minimally Invasive Surgery [address] [facility] 12th Floor, [place] [phone] Polo Pires NP Medical Question/Miscellaneous from Last 3 Months Surgical History Surgery [...] on file Legal Sex Female 12:40 PM 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 PYLORI BREATH TEST Routine 12/21/2024 1:45 PM CDT BMI 40.0-44.9, adult (HCC) Morbid obesity (HCC) Osteoarthritis of multiple joints, unspecified osteoarthritis type Primary hypertension Hyperlipidemia, unspecified hyperlipidemia type NICOTINE METABOLITE SCREEN, URINE Routine 12/21/2024 1:30 PM CDT BMI 40.0-44.9, adult (HCC) Morbid obesity (HCC) Osteoarthritis of multiple joints, unspecified osteoarthritis type Primary hypertension Hyperlipidemia, unspecified hyperlipidemia type EGFR Routine 12/21/2024 1:24 PM CDT BMI 40.0-44.9, adult (HCC) Morbid obesity (HCC) Osteoarthritis of multiple joints, unspecified osteoarthritis type Primary hypertension Hyperlipidemia, unspecified hyperlipidemia type DIFFERENTIAL AUTO Routine 12/21/2024 1:2 4 PM CDT BMI 40.0-44.9, adult (HCC) Morbid obesity (HCC) Osteoarthritis of multiple joints, unspecified osteoarthritis type Primary hypertension Hyperlipidemia, unspecified hyperlipidemia type CBC WITH AUTO DIFFERENTIAL Routine 12/21/2024 1:24 PM CDT BMI 40.0-44.9, adult (HCC) Morbid obesity (HCC) Osteoarthritis of multiple joints, unspecified osteoarthritis type Primary hypertension Hyperlipidemia, unspecified hyperlipidemia type COMPREHENSIVE METABOLIC PANEL Routine 12/21/2024 1:24 PM CDT BMI 40.0-44.9, adult (HCC) Morbid obesity (HCC) Osteoarthritis of multiple joints, unspecified osteoarthritis type Primary hypertension Hyperlipidemia, unspecified hyperlipidemia type HEMOGLOBIN A1C Routine 12/21/2024 1:24 PM CDT BMI 40.0-44.9, adult (HCC) Morbid obesity (HCC) Osteoarthritis of multiple joints, unspecified osteoarthritis type Primary hypertension Hyperlipidemia, unspecified hyperlipidemia type Abnormal finding of blood chemistry, unspecified TSH Routine 12/21/2024 1:24 PM CDT BMI 40.0-44.9, adult (HCC) Morbid obesity (HCC) Osteoarthritis of multiple joints, unspecified osteoarthritis type Primary hypertension Hyperlipidemia, unspecified hyperlipidemia type LIPID PANEL Routine 12/21/2024 1:24 PM CDT BMI 40.0-44.9, adult (HCC) Morbid obesity (HCC) Osteoarthritis of multiple joints, unspecified osteoarthritis type Primary hypertension Hyperlipidemia, unspecified hyperlipidemia type PTH Routine 12/21/2024 1:24 PM CDT BMI 40.0-44.9, adult (HCC) Morbid obesity (HCC) Osteoarthritis of multiple joints, unspecified osteoarthritis type Primary hypertension Hyperlipidemia, unspecified hyperlipidemia type VITAMIN D 25 HYDROXY Routine 12/21/2024 1:24 PM CDT BMI 40.0-44.9, adult (HCC) Morbid obesity (HCC) Osteoarthritis of multiple joints, unspecified osteoarthritis type Primary hypertension Hyperlipidemia, unspecified hyperlipidemia type VITAMIN B12 Routine 12/21/2024 1:24 PM CDT BMI 40.0-44.9, adult (HCC) Morbid obesity (HCC) Osteoarthritis of multiple joints, unspecified osteoarthritis type Primary hypertension Hyperlipidemia, unspecified hyperlipidemia type IRON PROFILE W/ IBC Routine 12/21/2024 1 :24 PM CDT BMI 40.0-44.9, adult (HCC) Morbid obesity (HCC) Osteoarthritis of multiple joints, unspecified osteoarthritis type Primary hypertension Hyperlipidemia, unspecified hyperlipidemia type Abnormal finding of blood chemistry, unspecified FERRITIN Routine 12/21/2024 1:24 PM CDT BMI 40.0-44.9, adult (HCC) Morbid obesity (HCC) Osteoarthritis of multiple joints, unspecified osteoarthritis type Primary hypertension Hyperlipidemia, unspecified hyperlipidemia type Abnormal finding of blood chemistry, unspecified SCREENING MAMMOGRAM BILATERAL W DUY Schedule Routine, Read Routine (OP Routine) 08/04/2024 3:46 PM RIGGER APPRENTICE Screening mammogram, encounter for from Last 3 Months or Most Recently Relevant to Health Maintenance Results * H. pylori breath test (12/21/2024 1:45 PM CDT) H. pylori, breath test Negative Negative [facility] Lab Comment: Result indicates the absence of current Helicobacter pylori infection. Test Performed by: [facility] [address] [place] [address] Equipment Records Supervisor: Lesly Le Ph.D.; CLIA# [id number] Breath 12/21/2024 1:45 PM CDT 12/21/2024 3:00 PM CDT Polo Pires NP LAB BODY FLUIDS AND STOOLS ORDERABLES Final Result Performing Organization Address [facility] Co de Phone Number DANDY LORENZ [address] [employer] [place] [address] [place] ref [facility] * Nicotine metabolite screen, urine (12/21/2024 1:30 PM CDT) Nicotine, ur <5.0 <5.0 ng/mL [facility] Cotinine, ur <5.0 <5.0 ng/mL CER[facility] CO[facility]RAN[facility] Anabasine ur <2.0 <2.0 ng/mL DANDY COCHRANCH Comment: ADDITIONAL INFORMATION This test was developed and its performance characteristics determined by [facility] in a manner consistent with CLIA requirements. This test has not been cleared or approved by the U.S. Food and Drug Administration. Test Performed by: [facility] [place] [address] Equipment Records Supervisor: Lesly Le Ph.D.; CLIA# [id number] Nornicotine, ur <2.0 <2.0 ng/mL DANDY MALDONADOWCH Urine 12/21/2024 1:30 PM CDT 12/21/2024 3:24 PM CDT Polo Pires NP LAB URINE ORDERABLES Final Result Performing Organization Address City/[facility]/ZIP Co de Phone Number DANDY COCHRANCH [address] [address] [facility] [employer] [place], [place] [phone] [place] ref [facility] * (ABNORMAL) eGFR (12/21/2024 1:24 PM CDT) eGFR 52(L) >=60 mL/min/1. 73 m2 Comment: Interpretive Data Reference Interval Normal >/= 90 mL/min/1.73m2 Mildly decreased* 60 - 89 mL/min/1.73m2 Mildly to moderately decreased 45 - 59 mL/min/1.73m2 Moderately to severely decreased 30 - 44 mL/min/1.73m2 Severely decreased 15 - 29 mL/min/1.73m2 Kidney Failure < 15 mL/min/1.73m2 *Relative to young adult level Estimated glomerular filtration rate is determined by the 2020 CKD-EPI equation recommended by the National Kidney Foundation (A Unifying Approach to GFR Estimation: Recommendations of the NKF-ASK Task Force on Reassessing the Inclusion of Race in Diagnosing Kidney Disease, JASN 2020). The CKD-EPI equation should not be used for patients with unstable renal function and has not been validated in children and those over 70. Current interpretive data was last reviewed 2021. Blood 12/21/2024 1:24 PM CDT 12/21/2024 1:55 PM CDT Pool Pires ENTERPRISE APPLICATION DEVELOPER LAB BLOOD ORDERABLES Final Result [facility] [address] [facility]. Department [place] [address] * Differential, auto (12/21/2024 1:24 PM CDT) Pathologist [facility] Neutrophil abs 4.73 1.50 - 6.50 K/cumm Imm gran abs 0.02 0.00 - 0.10 K/cumm [facility] Lymphocyte abs 1.77 0.80 - 3.30 K/cumm [facility] Monocyte abs 0.49 0.20 - 0.80 K/cumm [facility] Eosinophil abs 0.25 0.00 - 0.50 K/cumm [facility] Basophil abs 0.08 0.00 - 0.10 K/cumm [facility] Neutrophil pct 64.4 % [facility] Comment: Interpretive Data Percent cell count reference ranges are not reported, since discordance with absolute values may lead to misinterpretation of CBC data. Current Interpretive Data was last revised on 2017. Imm gran pct 0.3 % [facility] Comment: Interpretive Data Percent cell count reference ranges are not reported, since discordance with absolute values may lead to misinterpretation of CBC data. Current Interpretive Data was last revised on 2017. Lymphocyte pct 24.1 % DANDY LORENZ Comment: Interpretive Data Percent cell count reference ranges are not reported, since discordance with absolute values may lead to misinterpretation of CBC data. Current Interpretive Data was last revised on 2017. Monocyte pct 6.7 % DANDY LORENZ Comment: Interpretive Data Percent cell count reference ranges are not reported, since discordance with absolute values may lead to misinterpretation of CBC data. Current Interpretive Data was last revised on 2017. Eosinophil pct 3.4 % DANDY LORENZ Comment: Interpretive Data Percent cell count reference ranges are not reported, since discordance with absolute values may lead to misinterpretation of CBC data. Current Interpretive Data was last revised on 2017. Basophil pct 1.1 % DANDY LORENZ Comment: Interpretive Data Percent cell count reference ranges are not reported, since discordance with absolute values may lead to misinterpretation of CBC data. Current Interpretive Data was last revised on 2017. Blood 12/21/2024 1:24 PM CDT 12/21/2024 1:55 PM CDT us Polo Pires ENTERPRISE APPLICATION DEVELOPER LAB BLOOD ORDERABLES Final Result [facility] [address] [facility] Department [place] [address] * Iron profile w/ IBC (12/21/2024 1:24 PM CDT) Iron 110 35 - 145 mcg/dL Comment:Testing performed by : [facility], [address] [place] [address]., [address] TIBC 309 250 - 400 mcg/dL DANDY LORENZ Comment:Testing performed by : [facility], [address] [place] [address]., [address] Transferrin saturation 36 20 - 50 % DANDY LORENZ Comment:Testing performed by : [facility], [facility] [facility], [place]., [address] Blood 12/21/2024 1:24 PM CDT 12/21/2024 3:52 PM CDT Polo Pires ENTERPRISE APPLICATION DEVELOPER LAB BLOOD ORDERABLES Final Result Performing Organization Address [facility]/ZIP Co de Phone Number DANDY LORENZ [address] [place] [address] * (ABNORMAL) CBC with auto differential (12/21/2024 1:24 PM CDT) Pathologist [facility] WBC 7.34 3.80 - 9.90 K/cumm Hgb 14.5 11.9 - 15.5 g/dL [facility] Hct 45.4 35.6 - 45.5 % [facility] Plt 301 150 - 400 K/cumm [facility] MPV 9.1 9.1 - 12.3 fL [facility] RBC 4.70 3.90 - 5.20 M/cumm [facility] MCV 96.6(H) 81.3 - 96.4 fL [facility] MCH 30.9 27.1 - 33.3 pg [facility] MCHC 31.9(L) 32.3 - 35.7 g/dL [facility] RDW CV 12.6 11.1 - 14.9 % [facility] RDW SD 44.9 35.7 - 48.1 fL [facility] NRBC abs 0.00 0.00 - 0.01 K/cumm [facility] Blood 12/21/2024 1:24 PM CDT 12/21/2024 1:55 PM CDT Polo Pires NP LAB BLOOD ORDERABLES Final Result Performing Organization Address City/[facility]/ZIP Co de Phone Number DANDY LORENZ [address] [place] [address] * (ABNORMAL) Vitamin D 25 hydroxy (12/21/2024 1:24 PM CDT) Pathologist [facility] Vitamin D 25-OH 24(L) 30 - 80 ng/mL Blood 12/21/2024 1:24 PM CDT 12/21/2024 1:55 PM CDT Polo Pires NP LAB BLOOD ORDERABLES Final Result Performing Organization Address [facility] Co de Phone Number [facility] [address] [employer] SystemsD[facility] [employer] [place], [place] [phone] * (ABNORMAL) TSH (12/21/2024 1:24 PM CDT) [facility] Thyroid Stimulating Hormone 4.40(H) 0.30 - 4.20 mcIUnit/mL Blood 12/21/2024 1:24 PM CDT 12/21/2024 1:55 PM CDT Polo Pires NP LAB BLOOD ORDERABLES Final Result Performing Organization Address [facility] Phone Number [facility] [address] [address] [facility] [place] [address] * (ABNORMAL) PTH (12/21/2024 1:24 PM CDT) [facility] PTH 150(H) 15 - 65 pg/mL Blood 12/21/2024 1:24 PM CDT 12/21/2024 1:55 PM CDT Polo Pires NP LAB BLOOD ORDERABLES Final Result Performing Organization Address [facility] de Phone Number [facility] [address] [address] [facility] [employer] [place], [place] [id number] * Hemoglobin A1c (12/21/2024 1:24 PM CDT) [facility] Hgb A1C 5.3 4.0 - 5.6 % Estimated Average Glucose 105 mg/dL [facility] Comment: The ADA recommends reporting an estimated Average Glucose (eAG) with all Hemoglobin A1c results using the equation derived from a study of 507 normal and diabetic adults. Minority populations were underrepresented and children were not included. (Diabetes Care 31:5691-6468, 2008). The eAG is not equivalent to a fasting glucose. Blood 12/21/2024 1:24 PM CDT 12/21/2024 1:55 PM CDT Polo Pires NP LAB BLOOD ORDERABLES Final Result Performing Organization Address [facility] de Phone Number DANDY [facility] [address] [facility] [place] [address] * (ABNORMAL) Ferritin (12/21/2024 1:24 PM CDT) Ferritin 206(H) 15 - 150 ng/mL Comment:Testing performed by : [facility], [address] [place] [address]., [address] Blood 12/21/2024 1:24 PM CDT 12/21/2024 3:52 PM CDT Polo Pires NP LAB BLOOD ORDERABLES Final Result Performing Organization Address [facility] de Phone Number [facility] [address] [facility] [place] [address] * Vitamin B12 (12/21/2024 1:24 PM CDT) Vitamin B12 565 230 - 1,250 pg/mL Comment:Testing performed by : [facility], [address] [place] [address]., [address] Blood 12/21/2024 1:24 PM CDT 12/21/2024 3:52 PM CDT Polo Pires NP LAB BLOOD ORDERABLES Final Result DANDY COCHRANCH [address] [facility]. Department [place] [address] * (ABNORMAL) Lipid panel (12/21/2024 1:24 PM CDT) Cholesterol 188 30 - 199 mg/dL Comment: Interpretive Data Ages < or = 19 years Acceptable: <170 mg/dL Borderline high: 170-199 mg/dL High: >or= 200 mg/dL Ages > or = 20 years Desirable: <200 mg/dL Borderline high: 200-239 mg/dL High: >or= 240 mg/dL Literature References: 1. Expert Panel on Integrated Guidelines for Cardiovascular Health and Risk Reduction in Children and Adolescents. Pediatrics 2011;128:S213 2. NCEP Expert Panel. Circulation 2004;110:227 Current Interpretive Data was last revised on 2018. Triglycerides 190(H) <=149 mg/dL DANDY LORENZ Comment: Interpretive Data Ages < or = 9 years Acceptable: <75 mg/dL Borderline high: 75-99 mg/dL High: >or= 100 mg/dL Ages 10 to 20 years Acceptable: <90 mg/dL Borderline high: 90-129 mg/dL High: >or= 130 mg/dL Ages > or = 20 years Desirable: <150 mg/dL Borderline high: 150-199 mg/dL High: 200-499 mg/dL Very high: >or= 499 mg/dL Literature References: 1. Expert Panel on Integrated Guidelines for Cardiovascular Health and Risk Reduction in Children and Adolescents. Pediatrics 2011;128:S213 2. NCEP Expert Panel. Circulation 2004;110:227 Current Interpretive Data was last revised on 2018. HDL 51 >=40 mg/dL DANDY LORENZ Comment: Interpretive Data Ages < or = 19 years Acceptable: >45 mg/dL Borderline low: 40-45 mg/dL Low: <40 mg/dL Ages > or = 20 years Desirable: >or= 60 mg/dL Low: <40 mg/dL Literature References: 1. Expert Panel on Integrated Guidelines for Cardiovascular Health and Risk Reduction in Children and Adolescents. Pediatrics 2011;128:S213 2. NCEP Expert Panel. Circulation 2004;110:227 Current Interpretive Data was last revised on 2018. LDL, calculated 104 <=129 mg/dL DANDY LORENZ Comment: Interpretive Data Ages < or = 19 years Acceptable: <110 mg/dL Borderline high: 110-129 mg/dL High: >or= 130 mg/dL Ages > or = 20 years Optimal: <100 mg/dL Near optimal: 100-129 mg/dL Borderline high: 130-159 mg/dL High: >160 mg/dL Calculated using the Marko LDL-C estimating equation. This equation was implemented on 2024. Prior to this date LDL-C was estimated using the Friedewald equation. Literature References: 1. Expert Panel on Integrated Guidelines for Cardiovascular Health and Risk Reduction in Children and Adolescents. Pediatrics 2011;128:S213 2. NCEP Expert Panel. Circulation 2004;110:227 3. Marko Frances et al. VINNIE Cardiol. 2020 November 30;5(5):540-548. doi: 10.1001/jamacardio.2020.0013 Current Interpretive Data was last revised on 2024. Non-HDL Cholesterol 137 mg/dL DANDY LORENZ Comment: Interpretive Data Ages < or = 19 years Acceptable: <120 mg/dL Borderline high: 120-144 mg/dL High: >145 mg/dL Ages > or = 20 years When triglycerides are >200 mg/dL, Non-HDL cholesterol is a secondary target of therapy with treatment goals that are 30 mg/dL greater than the LDL cholesterol target. Literature References: 1. Expert Panel on Integrated Guidelines for Cardiovascular Health and Risk Reduction in Children and Adolescents. Pediatrics 2011;128:S213 2. NCEP Expert Panel. Circulation 2004;110:227 Current Interpretive Data was last revised on 2018. Chol/HDL ratio 4 DANDY LORENZ Blood 12/21/2024 1:24 PM CDT 12/21/2024 1:55 PM CDT us Polo Pires NP LAB BLOOD ORDERABLES Final Result DANDY MALDONADOWCH [address] [facility]. Department [place] [address] * (ABNORMAL) Comprehensive metabolic panel (12/21/2024 1:24 PM CDT) Pathologist [facility] Sodium 143 135 - 145 mmol/L Potassium, pl 5.0(H) 3.3 - 4.9 mmol/L [facility] Chloride 104 97 - 110 mmol/L [facility] CO2 28 22 - 32 mmol/L [facility] Anion gap 11 2 - 15 mmol/L [facility] BUN 14 6 - 25 mg/dL [facility] Creatinine 1.15(H) 0.60 - 1.10 mg/dL [facility] Glucose 98 70 - 199 mg/dL [facility] Comment: Interpretive Data Fasting glucose >/= 126 mg/dl is diagnostic for diabetes. Fasting is defined as no caloric intake for at least 8 hours. Fasting glucose between 100 mg/dl to 125 mg/dl is diagnostic of prediabetes. In a patient with classic symptoms of hyperglycemia or hyperglycemic crisis, a random glucose >/= 200 mg/dl is diagnostic for diabetes. In the absence of unequivocal hyperglycemia, results should be confirmed by repeat testing. The classification and Diagnosis of Diabetes Diabetes Care 2021; 46: S19-S40. Current interpretive data was last revised 2022. Calcium 9.4 8.5 - 10.3 mg/dL [facility] Bilirubin, total 0.4 0.1 - 1.2 mg/dL [facility] Protein, pl 7.6 6.5 - 8.5 g/dL [facility] Albumin 4.5 3.5 - 5.0 g/dL [facility] Alk phos 89 40 - 130 Units/L [facility] ALT 17 7 - 45 Units/L [facility] AST 23 10 - 45 Units/L [facility] Blood 12/21/2024 1:24 PM CDT 12/21/2024 1:55 PM CDT Polo Pires ENTERPRISE APPLICATION DEVELOPER LAB BLOOD ORDERABLES Final Result DANDY LORENZ [address] [facility]. Department of Laboratories [place], [place] [id number] * Screening Mammogram Bilateral W Duy (08/04/2024 3:46 PM RIGGER APPRENTICE) Anatomical Region Laterality Modality Breast Bilateral Mammography 08/08/2024 10:1 5 AM RIGGER APPRENTICE Impressions 08/08/2024 10:15 AM RIGGER APPRENTICE There is no mammographic evidence of malignancy. A 1 year screening mammogram is recommended. BI-RADS: 1 - Negative. The patient has been or will be contacted. The patient will be entered into a reminder system with a target due date of 1 year for her next mammogram. Electronically signed by: Shauna Tucker M.D. Narrative 08/08/2024 10:15 AM RIGGER APPRENTICE EXAMINATION: SCREENING MAMMOGRAM BILATERAL W DUY ORDERING [...] Most Recently Relevant to Health Maintenance [place] [address] [address] [facility] Care Teams Lap Winder Relationship Specialty Start Date End Date Mor Anderson MD [address] [facility] [address] [place] [address] PCP - General Family Medicine 12/02/23
--- OUTSIDE RECORDS SUMMARY | 2025-01-17 16:36 | XMS_ITS | Clinical Summary ---
Author Organization [facility] Address [address] [place] [address] Care Team Providers Care Fabric And Accessories Estimator Name Role Phone Mor Anderson MD Primary Care Provider [phone] Source Comments [facility] [employer],non-owned Affiliates and Associated Physician Practices is amultiple site organization consisting of ambulatory clinics and hospital sitesin [place], [place], [place] and [place]. This disclosure is being madepursuant to the Care Everywhere program and may not contain all information available regarding this patient. 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
--- OUTSIDE RECORDS SUMMARY | 2025-01-17 16:36 | XMS_ITS ---
Author Organization [facility] As [employer] [facility] Address [address] [facility] [address] [place] [address] Care Team Providers Care Letter Of Credit Document Examiner Name Role Phone Estrada, Grayson Unavailable [phone] Social History Sex Assigned At : Social History Observation Description Sex Assigned At Female Encounters Encounter Location Date Provider Diagnosis [facility] [employer] [place] [address] [facility] [address] [facility] [address] [place] [address] 08/22/2024 Grayson Estrada Plan Of Treatment No Information Progress Notes * JENI GUDINO MDOB:1954 (69 yo F)Acc No.[id number]:08/22/2024 Patient: JENI MARTINS Provider: BEATRIZ RIVERA :1955 A ge:69 Y S ex:Female Date:08/22/2024 Address:[address] [facility] Subjective: * Chief Complaints: * * Medical History: Objective: * Vitals: Assessment: Plan: * Treatment: * Billing Information: * Visit Code: * Procedure Codes: * Electronic signature of BEATRIZ Chapa on 01/17/2025 at 04:36 PM CDT Sign off status: Pending * Provider: BEATRIZ RIVERA Date: 0 08/22/2024 Generated for Printi ng/Facyndig/eTransmitting on: 0 01/17/2025 04:36 PM CDT
--- OUTSIDE RECORDS SUMMARY | 2025-01-17 16:36 | XMS_ITS | Encounter Summary ---
Author Organization [facility] Address [address] [facility] [address] [place] [address] Phone Care Team Providers Care Apprentice Jockey Name Role Phone Mor Anderson MD Primary Care Provider Reason for Visit * Reason Onset Date Comments Medical Question/Miscellaneous 01/17/2025 Encounter Details Date Type Department Care Team (Late st Contact Info) Description 01/17/2025 Telephone [place] [facility] ([facility]) - [facility] Minimally Invasive Surgery [address] [facility] 12th Floor, [place] [phone] Scar Schwartz MD [address] [facility] [phone] [place] [address] Medical Question/Miscellaneous Social History Tobacco Use Types [...] on file 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 WIll keep appt Wednesday. * Telephone Encounter - Garfield Astudillo - 01/17/2025 11:30 AM CDT Patient Query: Fall possible delay. Was an attempt to transfer to the assigned clinical staff or backline? No. Reason for call?: The patient has reached out to inform us about her unfortunate fall, during whichshe may have injured or possibly broken some of her ribs. She is sharing this information because she has been waiting a long time to see Dr. Schwartz for surgery. She has some questions regarding the process and whether it is still feasible for her to attend her appointment, as she is concerned about potential delays in her surgery. Would it be possible to arrange a telephone encounter to address her concerns? Patient would appreciate any guidance you can provide. Who is the caller:Gail Almendarez What is the best number for them to contact for a call back: [phone]. Last office visit: 01/05/2025 Date of Surgery: No surgery found documented in this encounter Plan of Treatment Not on file documented as of this encounter Visit Diagnoses Not on filedocumented in this encounter Care Teams Apprentice Jockey Relationship Specialty Start Date End Date Mor Anderson MD [address] [address] PCP - General Family Medicine 12/02/23 documented as of this encounter
--- OUTSIDE RECORDS SUMMARY | 2025-01-17 16:36 | XMS_ITS | Encounter Summary ---
Author Organization [facility] Address [address] [facility] [address] [place] [address] Phone Care Team Providers Care Electronic Warfare Technical Name Role Phone Mro Anderson MD Primary Care Provider Reason for Visit * Reason Onset Date Comments Medical Question/Miscellaneous 01/05/2025 Encounter Details Date Type Department Care Team (Late st Contact Info) Description 01/05/2025 Telephone [place] [facility] ([facility]) - [facility] Minimally Invasive Surgery [address] [facility] Advanced [facility] 12th Floor, [place] [address] Polo Piers, KINGSLEY [address] [facility] [phone] [place] [address] Medical Question/Miscellaneous Social History Tobacco Use Types [...] on file 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 no Reason for call?: Patient returning call to schedule surgery consult (Read message back to caller and ask them if there is anything else they'd like to add to the message) Who is the caller: Gail Almendarez What is the best number for them to contact for a call back: [phone] Last office visit: 12/29/2024 Date of Surgery: No surgery found documented in this encounter Plan of Treatment Not on file documented as of this encounter Visit Diagnoses Not on filedocumented in this encounter Care Teams Electronic Warfare Technical Relationship Specialty Start Date End Date Mor Anderson MD [address] [address] PCP - General Family Medicine 12/02/23 documented as of this encounter
--- OUTSIDE RECORDS SUMMARY | 2025-01-17 16:36 | XMS_ITS | Referral Summary ---
Author Organization [facility] Address [address] [place] [address] Care Team Providers Care Inspector Hairspring Truing Name Role Phone Mor Anderson MD Primary Care Provider Encounters Date Type Department Care Team Description 01/17/2025 Telephone [facility]) - [facility] Minimally Invasive Surgery [address] [facility] 12th Floor, [place] [phone] Scar Schwartz MD Medical Question/Miscellaneous 01/05/2025 Telephone [facility] Minimally Invasive Surgery [address] [facility] 12th Floor, [place] [phone] Polo Pires NP Medical Question/Miscellaneous 01/05/2025 Telephone [facility] Min[facility]ally Invasive Surgery [facility] Medical Office Building [address] [place] [address] Viridiana West CMA 12/29/2024 Telephone [facility]) - [facility] Minimally Invasive Surgery [address] [facility] 12th Floor, [place] [phone] Polo Pires NP Lab Results 12/22/2024 Results Follow-Up [facility] Minimally Invasive Surgery [address] [facility] [address] [place] [address] Polo Pires NP Ferritin, Iron profile w/ IBC, Vitamin B12, Additional followed-up results: 9 12/21/2024 1:10 PM CDT Lab [facility] [address] [place] [address] BMI 40.0-44.9, adult (HCC); Morbid obesity (HCC); Osteoarthritis of multiple joints, unspecified osteoarthritis type; Primary hypertension; Hyperlipidemia, unspecified hyperlipidemia type; Abnormal finding of blood chemistry, unspecified 11/28/2024 Telephone [facility] Pediatric Surgery [facility] 2nd [place] [address] [place] [address] Polo Pires NP Medical Question/Miscellaneous 11/22/2024 Telephone [facility] Minimally Invasive Surgery [address] 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 pylori breath test (12/21/2024 1:45 PM CDT) H. pylori, breath test Negative Negative [facility] Comment: Result indicates the absence of current Helicobacter pylori infection. Test Performed by: [facility] [place] [address] Membership Administrator: Lesly Le Ph.D.; CLIA# [id number] Breath 12/21/2024 1:45 PM CDT 12/21/2024 3:00 PM CDT Polo Pires NP LAB BODY FLUIDS AND STOOLS ORDERABLES Final Result Performing Organization Address City/[facility]/ZIP Co de Phone Number [facility] [address] [facility] [employer] [place] [address] [facility] * Nicotine metabolite screen, urine (12/21/2024 1:30 PM CDT) Pathologist [facility] Nicotine, ur <5.0 <5.0 ng/mL [facility] Cotinine, ur <5.0 <5.0 ng/mL DANDY MALDONADOWCH Anabasine ur <2.0 <2.0 ng/mL DANDY MALDONADOW[facility] Comment: ADDITIONAL INFORMATION This test was developed and its performance characteristics determined by [facility] in a manner consistent with CLIA requirements. This test has not been cleared or approved by the U.S. Food and Drug Administration. Test Performed by: [facility] [place] [address] Membership Administrator: Lesly Le Ph.D.; CLIA# [id number] Nornicotine, ur <2.0 <2.0 ng/mL DANDY MALDONADOWCH Urine 12/21/2024 1:30 PM CDT 12/21/2024 3:24 PM CDT Polo Pires NP LAB URINE ORDERABLES Final Result D[facility]Y MALDONADOFelipe[facility] [address] [employer] Department [place] [address] [facility] * (ABNORMAL) eGFR (12/21/2024 1:24 [...] CDT 12/21/2024 1:55 PM CDT Polo Pires QUALITY CONTROL ANALYST LAB BLOOD ORDERABLES Final Result DANDY COCHRANCH [address] [employer] Department [place] [address] * Differential, auto (12/21/2024 1:24 PM CDT) Neutrophil abs 4.73 1.50 - 6.50 K/cumm Imm gran abs 0.02 0.00 - 0.10 K/cumm C[facility]ER BJ[facility] Lymphocyte abs 1.77 0.80 - 3.30 K/cumm [facility] Monocyte abs 0.49 0.20 - 0.80 K/cumm [facility] Eosinophil abs 0.25 0.00 - 0.50 K/cumm CERNER BJDIXON Basophil abs 0.08 0.00 - 0.10 K/cumm DANDY MALDONADODIXON Neutrophil pct 64.4 % [facility] Comment: Interpretive Data Percent cell count reference ranges are not reported, since discordance with absolute values may lead to misinterpretation of CBC data. Current Interpretive Data was last revised on 2017. Imm gran pct 0.3 % DANDY COCHRAN Comment: Interpretive Data Percent cell count reference ranges are not reported, since discordance with absolute values may lead to misinterpretation of CBC data. Current Interpretive Data was last revised on 2017. Lymphocyte pct 24.1 % [facility] Comment: Interpretive Data Percent cell count reference ranges are not reported, since discordance with absolute values may lead to misinterpretation of CBC data. Current Interpretive Data was last revised on 2017. Monocyte pct 6.7 % [facility] Comment: Interpretive Data Percent cell count reference ranges are not reported, since discordance with absolute values may lead to misinterpretation of CBC data. Current Interpretive Data was last revised on 2017. Eosinophil pct 3.4 % [facility] Comment: Interpretive Data Percent cell count reference ranges are not reported, since discordance with absolute values may lead to misinterpretation of CBC data. Current Interpretive Data was last revised on 2017. Basophil pct 1.1 % [facility] Comment: Interpretive Data Percent cell count reference ranges are not reported, since discordance with absolute values may lead to misinterpretation of CBC data. Current Interpretive Data was last revised on 2017. Blood 12/21/2024 1:24 PM CDT 12/21/2024 1:55 PM CDT us Polo Pires QUALITY CONTROL ANALYST LAB BLOOD ORDERABLES Final Result DANDY MALDONADOWCH [address] [facility]. Department [place] [address] * Iron profile w/ IBC (12/21/2024 1:24 PM CDT) Iron 110 35 - 145 mcg/dL Comment:Testing performed by : [facility], [address] [place] [address]., [address] TIBC 309 250 - 400 mcg/dL CERJI BJWCH Comment:Testing performed by : [facility], [address] [place] [address]., [address] Transferrin saturation 36 20 - 50 % CERNER [facility] Comment:Testing performed by : [facility], [address] [place] [address]., [address] Blood 12/21/2024 1:24 PM CDT 12/21/2024 3:52 PM CDT Polo Pires QUALITY CONTROL ANALYST LAB BLOOD ORDERABLES Final Result DANDY COCHRAN [address] [facility]. Department of Laboratories [place], [place] [id number] * (ABNORMAL) CBC with auto differential (12/21/2024 1:24 PM CDT) [facility] WBC 7.34 3.80 - 9.90 K/cumm Hgb 14.5 11.9 - 15.5 g/dL [facility] Hct 45.4 35.6 - 45.5 % [facility] Plt 301 150 - 400 K/cumm [facility] MPV 9.1 9.1 - 12.3 fL [facility] RBC 4.70 3.90 - 5.20 M/cumm [facility] MCV 96.6(H) 81.3 - 96.4 fL [facility] MCH 30.9 27.1 - 33.3 pg [facility] MCHC 31.9(L) 32.3 - 35.7 g/dL [facility] RDW CV 12.6 11.1 - 14.9 % [facility] RDW SD 44.9 35.7 - 48.1 fL [facility] NRBC abs 0.00 0.00 - 0.01 K/cumm [facility] Blood 12/21/2024 1:24 PM CDT 12/21/2024 1:55 PM CDT Polo Pires NP LAB BLOOD ORDERABLES Final Result Performing Organization Address [facility] de Phone Number DANDY MALDONADOCH [address] [facility] [place] [address] * (ABNORMAL) Vitamin D 25 hydroxy (12/21/2024 1:24 PM CDT) Vitamin D 25-OH 24(L) 30 - 80 ng/mL Blood 12/21/2024 1:24 PM CDT 12/21/2024 1:55 PM CDT Polo Pires NP LAB BLOOD ORDERABLES Final Result Performing Organization Address [facility] Phone Number [facility] [address] [facility] [place] [address] * (ABNORMAL) TSH (12/21/2024 1:24 PM CDT) Thyroid Stimulating Hormone 4.40(H) 0.30 - 4.20 mcIUnit/mL Blood 12/21/2024 1:24 PM CDT 12/21/2024 1:55 PM CDT Polo Pires NP LAB BLOOD ORDERABLES Final Result Performing Organization Address [facility] de Phone Number DANDY BJW[facility] [address] [facility] [place] [address] * (ABNORMAL) PTH (12/21/2024 1:24 PM CDT) PTH 150(H) 15 - 65 pg/mL Blood 12/21/2024 1:24 PM CDT 12/21/2024 1:55 PM CDT Polo Pires NP LAB BLOOD ORDERABLES Final Result Performing Organization Address [facility] Co de Phone Number [facility] [address] [facility] [employer] [place], [place] [address] * Hemoglobin A1c (12/21/2024 1:24 PM CDT) [facility] Hgb A1C 5.3 4.0 - 5.6 % Estimated Average Glucose 105 mg/dL [facility] Comment: The ADA recommends reporting an estimated Average Glucose (eAG) with all Hemoglobin A1c results using the equation derived from a study of 507 normal and diabetic adults. Minority populations were underrepresented and children were not included. (Diabetes Care 31:9286-6038, 2008). The eAG is not equivalent to a fasting glucose. Blood 12/21/2024 1:24 PM CDT 12/21/2024 1:55 PM CDT Polo Pires NP LAB BLOOD ORDERABLES Final Result Performing Organization Address [facility] de Phone Number DANDY [facility] [address] [address] [employer]. Department [employer] [place], [place] [id number] * (ABNORMAL) Ferritin (12/21/2024 1:24 PM CDT) [facility] Ferritin 206(H) 15 - 150 ng/mL Comment:Testing performed by : [facility], [address] [place] [address]., [address] Blood 12/21/2024 1:24 PM CDT 12/21/2024 3:52 PM CDT Polo Pires NP LAB BLOOD ORDERABLES Final Result Performing Organization Address [facility] de Phone Number [facility] [address] [facility] [place] [address] * Vitamin B12 (12/21/2024 1:24 PM CDT) [facility] Vitamin B12 565 230 - 1,250 pg/mL Comment:Testing performed by : [facility], [address] [place] [address]., [address] Blood 12/21/2024 1:24 PM CDT 12/21/2024 3:52 PM CDT us Polo Pires NP LAB BLOOD ORDERABLES Final Result [facility] [address] [facility]. Department [place] [address] * (ABNORMAL) Lipid panel (12/21/2024 1:24 PM [...] 3. Marko Frances et al. VINNIE Cardiol. 2019November 30;5(5):540-548. doi: 10.1001/jamacardio.2020.0013 Current Interpretive Data was [...] 12/21/2024 1:55 PM CDT us Polo Pires QUALITY CONTROL ANALYST LAB BLOOD ORDERABLES Final Result [facility] [address] [facility]. Department [place] [address] * (ABNORMAL) Comprehensive metabolic panel (12/21/2024 1:24 PM CDT) Sodium 143 135 - 145 mmol/L Potassium, [...] CDT 12/21/2024 1:55 PM CDT Polo Pires QUALITY CONTROL ANALYST LAB BLOOD ORDERABLES Final Result DANDY [facility] [address] [facility]. Department [place] [address] * Screening Mammogram Bilateral W Duy (08/04/2024 3:46 PM METAL ROOM DENTAL TECHNICIAN) Anatomical Region Laterality Modality Breast Bilateral Mammography 08/08/2024 10:1 5 AM METAL ROOM DENTAL TECHNICIAN Impressions 08/08/2024 10:15 AM METAL ROOM DENTAL TECHNICIAN There is no mammographic evidence of malignancy. A 1 year screening mammogram is recommended. BI-RADS: 1 - Negative. The patient has been or will be contacted. The patient will be entered into a reminder system with a target due date of 1 year for her next mammogram. Electronically signed by: Shauna Tucker M.D. Narrative 08/08/2024 10:15 AM METAL ROOM DENTAL TECHNICIAN EXAMINATION: SCREENING MAMMOGRAM BILATERAL W DUY ORDERING [...] There has been no suspicious interval change. Self Screening Mammogram IMG MAMMO PROCEDURES Fi nal Result from Last 3 Months or Most Recently Relevant to Health Maintenance Insurance [facility] Member Subscriber Plan / Payer (Ef fective 2021-Present) Name:Gail Almendarez Relation to Subscriber:Self Name:Gail Almendarez Payer ID:[id number] (NAIC) Type:MEDICARE RISK OTHER Address: [address] [place] [id number] Care Teams Inspector Hairspring Truing Relationship Specialty Start Date End Date Mor Anderson MD [address] [facility] [address] [place] [address] PCP - General Family Medicine 12/02/23
--- OUTSIDE RECORDS SUMMARY | 2025-01-17 16:36 | XMS_ITS | Encounter Summary ---
Author Organization [facility] Address [address] [facility] [address] [place] [address] Phone Care Team Providers Care New Business Clerk Name Role Phone Mor Anderson MD Primary Care Provider Encounter Details Date Type Department Care Team (Late st Contact Info) Description 12/22/2024 Results Follow-Up [facility] Minimally Invasive Surgery [facility] Medical Office Building [address] [place] [address] Polo Pires, KINGSLEY [address] [facility] [place] [phone] [place] [address] Ferritin, Iron profile w/ IBC, Vitamin B12, Additional followed-up results: 9 Social History Tobacco Use Types Packs/Day Years [...] on file 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
--- OUTSIDE RECORDS SUMMARY | 2025-01-17 16:37 | XMS_ITS | Patient Health Record ---
Author Organization [facility] [employer] [facility] Address [address] [place] [address] Care Team Providers Care Machine Wedger Name Role Phone Grayson Estrada Unavailable [phone] Allergies No Known Allergies Results Component Value Reference Range Notes UDT Reviewed date:09/06/2024 04:52:50 PM Interpretation: Performing Lab: Notes/Report: THC N 0 - 50 ng/ml Cocaine N 0 - 300 ng/ml Amphetamine N 0 - 1000 ng/ml Buprenorphine (BUP) N 0 - 10 ng/ml Secobarbital (Bar) N 0 - 300 ng/ml Oxazepam (BZO) P 0 - 300 ng/ml 5-nhluvgvxvj-1,1-rgnbmpdb-8,3-diphenylpyrrolidine (TERESE P) N 0 - 300 ng/ml Methamphetamine (MET) N 0 - 1000 ng/ml Methylenedioxymethamphetamine (MDMA) N 0 - 500 ng/ml Morphine (MOP 300/BTT2599) N 0 - 300 ng/ml Methadone (MTD) N 0 - 300 ng/ml Phencyclidine (PCP) N 0 - 25 ng/ml Nortriptyline (TCA) N 0 - 1000 ng/ml Oxycodone N 0 - 300 ng/ml x N 0 - 300 ng/ml Reason For Referral No Information Medications Medication SIG (Take, Route, Frequency, Duration) Notes Start Date End Date Status Baclofen 10 MG Oral 11/18/2023 Acti ve DULoxetine HCl 60 MG 1 capsule Oral Once a day for 90 days Active Metoprolol Succinate ER 50 MG Oral 11/18/2023 Active ProAir HFA 108 (90 Base) MCG/ACT [...] & 10 x 100MG Oral *Reorder from [employer] for eRx and Interaction Alerts* 11/18/2023 Active [...] has it been since you last smoked? 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) 4 Active confirmed Vital Signs Heart Rate 80 /min 09/06/2024 Height-cm 170.18 cm 09/06/2024 Blood pressure diastolic 100 mm Hg 09/06/2024 Weight-kg 129.73 kg 09/06/2024 Height 67.00 in 09/06/2024 Blood pressure systolic 160 mm Hg 09/06/2024 Weight 286 lbs 09/06/2024 BMI 44.79 kg/m2 09/06/2024 Encounters Encounter Location Date Provider Diagnosis [facility] [employer] [place] [id number] [facility] [address] [address] 09/06/2024 Grayson Estrada Benign essential HTN I10 ; Generalized anxiety disorder F41.1 ; Major depressive disorder, recurrent, mild F33.0 and Insomnia due to other mental disorder F51.05 [facility] [employer] [place] [address] [address] 07/19/2024 Grayson Estrada Generalized anxiety disorder F41.1 [facility] [employer] [place] [address] [address] 07/24/2024 Grayson Estrada Major depressive disorder, recurrent, [...] Patient is considering weight loss surgery at [facility] (formerly [facility]). - Scheduled for a psychological evaluation [...] Ensure patient picks up the refill at [facility]. - Continue to monitor sleep patterns and [...] Replacement/ Advantage - Hmo [address] [place] [address] [phone] [id number] SHAHAB JENI Self - patient is the insured Medical [...] Date(Month/Year) Any surgical history Other Endometrial ablation (48766) 08/02/1986 Hysterectomy (09927) 08/02/2002 Other 08/02/2009 Cataract surgery (90042) 08/02/2019
== END 2025-01-17 14:41 | disposition home or self-care (01) ==
PROVIDERS: PCP Family Medicine
DX: R07.81 Pleurodynia (principal); J90 Pleural effusion, not elsewhere classified
CPT/HCPCS: 71046

== ENCOUNTER 2025-01-19 11:33 | Observation (INO) | payer OTHER, SELFPAY ==
--- NOTE | ~2025-01-19 | XR_ITS ---
Portable chest x-ray Comparison: 01/17/2025 Clinical History: Dyspnea Findings: Stable left pleural effusion with basilar atelectasis. Right lung clear. Cardiomediastina l silhouette is stable. Bones and soft tissues are unremarkable. Impression: Stable left pleural effusion with left basilar atelectasis. Reviewed, dictated and finalized at [facility]. Impression: Stable left pleural effusion with left basilar atelectasis.
--- NOTE | ~2025-01-19 | XR_ITS ---
EXAMINATION: [id number] DATE: 01/20/2025 11:19 INDICATION: Status post left thoracentesis TECHNIQUE: frontal view of the chest was obtained. COMPARISON: Chest radiograph dated 01/17/2025 FINDINGS: Decreased opacities at the left lower lung zone consistent with decreasing small left pleural effusio n with associated atelectasis versus pneumonia. There is an extrapleural opacity at the lateral left lower lung zone which on prior CT is associated with a few lateral left rib fractures likely represen ting an associated subpleural chest wall hematoma. Right lung is clear. No pulmonary edema, pneumotho rax or right-sided pleural effusion. Heart size is normal. IMPRESSION: 1. Decreased small left pleural effusion postthoracentesis. 2. Opacities at the left lower lung zone consistent with associated atelectasis and likely lateral le ft chest wall hematoma associated with previous noted left-sided rib fractures. Reviewed, dictated and finalized at location A. IMPRESSION: 1. Decreased small left pleural effusion postthoracentesis. 2. Opacities at the left lower lung zone consistent with associated atelectasis and likely lateral left chest wall hematoma associated with previous noted lef t-sided rib fractures.
--- NOTE | ~2025-01-19 | XR_ITS ---
Portable chest x-ray Comparison: 01/19/2025 Clinical History: Pleural effusion Findings: Small left pleural effusion present with left basilar atelectasis or edema. Right lung flash ar. Cardiomediastinal silhouette is stable. Bones and soft tissues are unremarkable. Impression: Small left pleural effusion with probable left basilar atelectasis or pulmonary edema. Correlate clin ically for pneumonia. Reviewed, dictated and finalized at [facility]. Impression: Small left pleural effusion with probable left basilar atelectasis or pulmonary edema. Correlate clinically for pneumonia.
--- NOTE | ~2025-01-19 | CT_ITS ---
CT Scan of the Chest without Contrast: Clinical Indication: Left effusion, recent left rib injury Technique: Contiguous sections were acquired throughout the chest without intravenous contrast. Dose reduction technique was used on this scan by utilizing automated exposure control and iterative recon struction technique. The dose-length product (DLP) was 970.51 mGy-cm. Findings: There is no evidence of any significant mediastinal, hilar or axillary lymphadenopathy. The mediastin al soft tissues appear normal. No pericardial effusion. Moderate left pleural effusion present. There is mild left basilar atelectasis. Lungs are otherwise c lear. No pneumothorax. There is acute fracture of the left eighth rib laterally. There is mild subcutaneous soft tissue emph ysema along the left chest wall. Images through the upper abdomen reveal gallstones. Impression: Acute fracture the lateral left eighth rib. Moderate left pleural effusion and left basilar atelectasis. No pneumothorax. Mild subcutaneous emphysema along left chest wall. Cholelithiasis. Reviewed, dictated and finalized at location . Impression: Acute fracture the lateral left eighth rib. Moderate left pleural effusion and left basilar atelectasis. No pneumothorax. Mild subcutaneous emphysema along left chest wall. Cholelithiasis.
--- NOTE | ~2025-01-19 | US_ITS ---
EXAMINATION: US thoracentesis DATE: 01/20/2025 11:20 INDICATION: Left pleural effusion TECHNIQUE: The procedure and its risks and benefits were discussed with the patient. Potential risks discussed included bleeding, infection, and pneumothorax. The patient understood the risks and agreed to proceed. The skin was prepped and draped in sterile fashion. 1% lidocaine was used for local anes thesia. Under ultrasound guidance, a 5 Fr catheter with trochar was advanced into the left pleural ef fusion. Fluid was aspirated. The catheter was removed, and a dressing was applied. There were no imme diate complications. FINDINGS: Ultrasound images demonstrate a small to moderate-sized left pleural effusion and the catheter within the fluid. IMPRESSION: 1. Successful ultrasound-guided thoracentesis yielding 900 mL of bloody, dark maroon-colored fluid. Reviewed, dictated and finalized at location A.
[2025-01-19 11:37] VITALS: BP 159/91; PULSE 68; RESP 22; TEMP 36.1; O2SAT 92
[2025-01-19 13:56] VITALS: PULSE 67; RESP 20; O2SAT 94
[2025-01-19 13:58] LABS: Basophils Absolute Auto 0.1 K/mm3 (0.0-0.1); Basophils Percent Auto 0.9 % (0.2-1.2); Eosinophils Absolute Auto 0.5 K/mm3 (0-0.3); Eosinophils Percent Auto 5.7 % (0-4.4); Hematocrit 39.2 % (37.0-47.0); Hemoglobin 12.4 g/dL (12.0-15.0); Immature Granulocyte Absolute 0.02 K/mm3 (0.00-0.031); Immature Granulocyte Percent A 0.2 % (0-0.5); Lymphocytes Absolute Auto 1.61 K/mm3 (0.9-3.2); Lymphocytes Percent Auto 19.9 % (18.3-44.2); Mean Corpuscular HGB Conc 31.6 g/dl (32-36); Mean Corpuscular Hemoglobin 30.6 pg (26-34); Mean Corpuscular Volume 96.8 fl (80-100); Mean Platelet Volume 8.9 fl (7.4-10.4); Monocytes Absolute Auto 0.7 K/mm3 (0.1-0.6); Monocytes Percent Auto 8.7 % (2.6-8.5); Neutrophils Absolute Auto 5.2 K/mm3 (1.3-6.7); Neutrophils Percent Auto 64.6 % (45.5-73.1); Platelet Count Result 316 k/mm3 (150-375); Red Blood Count 4.05 M/mm3 (4.2-5.4); Red Cell Distribution Width 13.1 % (11.5-14.5); White Blood Count 8.1 K/mm3 (4.5-10.0)
[2025-01-19 14:09] LABS: Alanine Aminotransferase 17 U/L (6-35); Alkaline Phosphatase 94 U/L (38-126); Anion Gap 10 mmol/L (4-12); Aspartate Amino Transferase 27 U/L (14-36); Bilirubin,Total 0.4 mg/dL (0.2-1.3); Blood Urea Nitrogen 12 mg/dL (7-17); Calcium 9.6 mg/dL (8.4-10.2); Carbon Dioxide 28 mmol/L (22-30); Chloride 104 mmol/L (98-107); Estimated CRCL calculation 83 ml/min; Estimated Glomerular Filt Rate > 60; Glucose 110 mg/dL (65-110); Lactate Dehydrogenase 217 U/L (120-246); Sodium 142 mmol/L (137-145); Total Protein 7.4 g/dL (6.3-8.2)
[2025-01-19 14:10] LABS: Prothrombin Time 13.4 Seconds (11.1-14.7)
[2025-01-19 14:22] LABS: Amylase 50 U/L (30-110)
--- NOTE | 2025-01-19 14:36 | ED_ITS ---
HPI - Fall General Chief Complaint: Fall Stated Complaint: fall last Wednesday, left side rib pain Time Seen by Provider: 01/19/25 13:03 History of Present Illness HPI Narrative: Patient tripped and fell last Wednesday, landing on her left side when she tried to catch herself, did not hit her head or neck. Had some pain to her left ribs, had a chest x-ray and was told she had fluid in her lungs and to come back to the hospital. She has been having more trouble breathing. Related Data Home Medications ?Medication ?Instructions ?Recorded ?Confirmed ?Last Taken ?Type cetirizine 10 mg tablet (Zyrtec) 10 mg PO DAILY 06/23/19 12/23/24 Unknown History duloxetine 60 mg capsule,delayed mg PO 05/15/24 12/23/24 Unknown History release Allergies Allergy/AdvReac Type Severity Reaction Status Date / Time No Known Allergies Allergy Verified 01/19/25 11:37 Review of Systems 2 Review of Systems: All systems reviewed & are unremarkable except as noted in HPI and below PMFSH Past Medical History Medical History Depression COPD (chronic obstructive pulmonary disease) Surgical History Surgical History S/P cystoscopy with ureteral stent placement History of knee replacement S/P hip replacement S/P total hysterectomy Family History Family History Mother Family history of lung cancer Father Family history of throat cancer Other Cerebrovascular accident Family history of arthritis Family history of cardiovascular disease Family history of lung disease Family history of malignant neoplasm Hypertension Social History Social History Smoking status: Former smoker Smoking end date: 08/02/13 Alcohol intake: current Alcohol use details: social drinker Substance use: never Substance use type: does not use Living arrangements: with family Occupation/Education: retired Gender identity (if verbalized by the patient): Female Exam 2 Narrative: EXAMINATION OF ORGAN SYSTEMS/BODY AREAS: Constitutional: Vital signs per nursing GENERAL:[No acute distress, non-toxic appearing.] HEAD: Normal with no signs of head trauma. EYES: EOMI, conjunctiva normal ENT: Hearing grossly intact LUNGS: Some tachypnea and diminished breath sounds on the left HEART: [Regular rate and rhythm] ABD: [Soft], [nontender to palpation] EXT: Normal range of motion SKIN: [No rashes or lesions.] Some slight tenderness left ribs NEURO: [Alert and oriented x 3. No gross focal sensory or strength deficits.] PSYCH: Normal affect Course Vital Signs Vital signs: Vital Signs Temperature 96.9 F L 01/19/25 11:37 Pulse Rate 68 01/19/25 11:37 Respiratory Rate 22 H 01/19/25 11:37 Blood Pressure 159/91 H 01/19/25 11:37 Pulse Oximetry 92 01/19/25 11:37 Oxygen Delivery Room Air 01/19/25 11:37 Temperature 96.9 F L 01/19/25 11:37 Pulse Rate 67 01/19/25 13:56 Respiratory Rate 20 01/19/25 13:56 Blood Pressure 159/91 H 01/19/25 11:37 Pulse Oximetry 94 01/19/25 13:56 Oxygen Delivery Room Air 01/19/25 11:37 MDM - Fall MDM Narrative Medical decision making narrative: Patient presenting here with some difficulty breathing, was found to have left sided pleural effusion on x-ray from 2 days ago. She does seem a little sick here with some diminished lung sounds on left, I did obtain a CT chest for better diagnostic detail and this shows 1 broken rib, likely pleural effusion left lung. I do feel she would benefit from thoracentesis and this is ordered after discussion with patient, however unfortunately IR had to leave early today, but they do state they should be able to do it tomorrow. Discussed this with patient was agreeable to plan as well as hospitalist. Patient placed on oxygen with immediate improvement in symptoms. Lab Data 01/19/25 13:51 01/19/25 13:51 Labs: Lab Results 01/19/25 Range/Units 13:51 WBC 8.1 (4.5-10.0) K/mm3 RBC 4.05 L (4.2-5.4) M/mm3 Hgb 12.4 (12.0-15.0) g/dL Hct 39.2 (37.0-47.0) % MCV 96.8 (80-100) fl MCH 30.6 (26-34) pg MCHC 31.6 L (32-36) g/dl RDW 13.1 (11.5-14.5) % Plt Count 316 (150-375) k/mm3 MPV 8.9 (7.4-10.4) fl Immature Gran % (Auto) 0.2 (0-0.5) % Neut % (Auto) 64.6 (45.5-73.1) % Lymph % (Auto) 19.9 (18.3-44.2) % [place] % (Auto) 8.7 H (2.6-8.5) % Eos % (Auto) 5.7 H (0-4.4) % Baso % (Auto) 0.9 (0.2-1.2) % Lymph # (Auto) 1.61 (0.9-3.2) K/mm3 [place] # (Auto) 0.7 H (0.1-0.6) K/mm3 Eos # (Auto) 0.5 H (0-0.3) K/mm3 Baso # (Auto) 0.1 (0.0-0.1) K/mm3 Abs Immat Gran (auto) 0.02 (0.00-0.031) K/mm3 Absolute Neuts (auto) 5.2 (1.3-6.7) K/mm3 Absolute Nucleated RBC 0.000 (0.0-0.012) K/mm3 Nucleated RBC % 0.0 (0.0-0.2) % PT 13.4 (11.1-14.7) Seconds INR 1.0 Sodium 142 (137-145) mmol/L Potassium 4.0 (3.4-5.0) mmol/L Chloride 104 (98-107) mmol/L Carbon Dioxide 28 (22-30) mmol/L Anion Gap 10 (4-12) mmol/L BUN 12 (7-17) mg/dL Creatinine 0.80 (0.7-1.0) mg/dL Estim Creat Clear Calc 83 ml/min Estimated GFR > 60 (59 - ) Glucose 110 (65-110) mg/dL Calcium 9.6 (8.4-10.2) mg/dL Total Bilirubin 0.4 (0.2-1.3) mg/dL AST 27 (14-36) U/L ALT 17 (6-35) U/L Alkaline Phosphatase 94 (38-126) U/L Lactate Dehydrogenase 217 (120-246) U/L Total Protein 7.4 (6.3-8.2) g/dL Albumin 4.0 (3.5-5.1) g/dL Amylase 50 (30-110) U/L Discharge Plan Discharge Clinical Impression: Pleural effusion on left, Left rib fracture Patient Disposition: Still a Patient Condition: Serious Patient Language: Bhutanese Prescriptions: No Action cetirizine [Zyrtec] 10 mg tablet 10 mg PO DAILY duloxetine 60 mg capsule,delayed release(DR/EC) PO albuterol sulfate 90 mcg/actuation HFA aerosol inhaler 1 puff inhalation Q6H PRN (Reason: shortness of breath or wheezing) Qty: 8.5 2RF fluticasone propion-salmeterol [Wixela Inhub] 250-50 mcg/dose blister with device 1 inh inhalation BID Qty: 60 5RF Rx Instructions: rinse and spit levothyroxine 125 mcg tablet See Rx Instructions .ROUTE .COMPLEX Qty: 90 2RF Dose Instruction: TAKE 1 TABLET BY MOUTH EVERY DAY Rx Instructions: TAKE 1 TABLET BY MOUTH EVERY DAY pilocarpine HCl 5 mg tablet See Rx Instructions .ROUTE .COMPLEX Qty: 360 2RF Dose Instruction: TAKE 1 TABLET BY MOUTH FOUR TIMES DAILY FOR 90 DAYS Rx Instructions: TAKE 1 TABLET BY MOUTH FOUR TIMES DAILY FOR 90 DAYS hydroxychloroquine 200 mg tablet 200 mg PO BID Qty: 180 2RF bupropion HCl 300 mg tablet extended release 24 hr See Rx Instructions .ROUTE .COMPLEX Qty: 90 2RF Dose Instruction: TAKE 1 TABLET BY MOUTH EVERY DAY IN THE MORNING Rx Instructions: TAKE 1 TABLET BY MOUTH EVERY DAY IN THE MORNING pravastatin 40 mg tablet See Rx Instructions .ROUTE .COMPLEX Qty: 90 2RF Dose Instruction: TAKE 1 TABLET BY MOUTH EVERY DAY Rx Instructions: TAKE 1 TABLET BY MOUTH EVERY DAY baclofen 10 mg tablet 10 mg PO TID PRN (Reason: muscle spasm) Qty: 270 1RF gabapentin 600 mg tablet 900 mg PO TID 90 Days Qty: 405 1RF metoprolol succinate 50 mg tablet extended release 24 hr 50 mg PO DAILY Qty: 90 2RF alprazolam [Xanax] 1 mg tablet 1 mg PO TID PRN (Reason: anxiety) Qty: 30 0RF zolpidem 10 mg tablet 10 mg PO QHS PRN (Reason: insomnia) Qty: 90 0RF tramadol 50 mg tablet 100 mg PO Q8H PRN (Reason: pain) Qty: 90 0RF losartan 50 mg tablet 50 mg PO DAILY Qty: 90 1RF Follow-up/Referrals: Mor Anderson MD [Primary Care Provider] -
[2025-01-19 16:47] VITALS: BMI 45.5
[2025-01-19 16:49] VITALS: BMI 45.5
--- NOTE | 2025-01-19 16:49 | ADMGEN ---
This patient, Gail Almendarez, was admitted to Medical Room 340-01. Patient/family oriented to hospital policies and general routines including ID bracelet, bed and alarms, visiting hours, pain management, procedures, bathroom and other care routines, personal items, smoking policy, room service/diet, and visiting hours. Information on how to activate the Rapid Response Team has been discussed. Patient/Family are encouraged to report perceived risks to care and to ask questions if they do not understand what they are told or what they should do.
--- NOTE | 2025-01-19 18:35 | P.HP_ITS ---
H&P: HPI History of Present Illness Date/Time: 01/19/25 18:35 Chief Complaint: pleural effusion Narrative: 69 yo female with PMH of HTN, chronic back pain, Anxiety, sjogren and Left knee OA who was sent to the [facility] ER by her PCP on account of Left sided pleural effusion. Patient noted that about a week ago she had a mechanical fall and followed up with PCP who obtained a chest xray which showed left sided pleural effusion and thus referred her to the ER. Patient noted she has been having mild SOB otherwise denies any chest pain, abd pain, diarrhea, vomiting and dysuria. ER eval notable for BP 159/91, labs unremarkable, Ct chest showed acute left 8th rib fracture adn moderate left pleural effusion and left basilar atelectasis. Review of Systems Review of Systems: All other systems were reviewed and negative except as noted in the HPI above PMFSH Past Medical History Medical History Depression COPD (chronic obstructive pulmonary disease) Surgical History Surgical History S/P cystoscopy with ureteral stent placement History of knee replacement S/P hip replacement S/P total hysterectomy Family History Family History Mother Family history of lung cancer Father Family history of throat cancer Other Cerebrovascular accident Family history of arthritis Family history of cardiovascular disease Family history of lung disease Family history of malignant neoplasm Hypertension Social History Social History Smoking status: Former smoker Alcohol intake: current Alcohol use details: social drinker Substance use: never Substance use type: does not use Do You Feel Safe in your Home?: Yes Lack of Transportation: No Lack of Food: Never True Current Housing: Decline to Answer Concerned About Future Housing: No Difficulty Paying Gas/Electric Bills: No Difficulty Paying for Meds: No Currently Unemployed: No Education: Decline to Answer Difficulty w/ Childcare or Family Care: No Living arrangements: with family Occupation/Education: retired Gender identity (if verbalized by the patient): Female Spiritual care concerns: No Meds Home Medications and Allergies Home Medications ?Medication ?Instructions ?Recorded ?Confirmed ?Type cetirizine 10 mg tablet (Zyrtec) 10 mg PO DAILY 11/22/19 06/20/25 History levothyroxine 125 mcg tablet See Rx Instructions .Route 05/11/24 01/19/25 Rx .COMPLEX #90 tabs albuterol sulfate 90 mcg/actuation 1 puff inhalation Q6H PRN 05/15/24 01/19/25 Rx aerosol inhaler shortness of breath or wheezing #8.5 grams duloxetine 60 mg capsule,delayed 60 mg PO DAILY 05/15/24 01/19/25 History release hydroxychloroquine 200 mg tablet 200 mg PO BID #180 tabs 06/08/24 01/19/25 Rx pilocarpine HCl 5 mg tablet See Rx Instructions .Route 06/08/24 01/19/25 Rx .COMPLEX #360 tabs bupropion HCl 300 mg 24 hr tablet, See Rx Instructions .Route 06/16/24 01/19/25 Rx extended release .COMPLEX #90 tabs pravastatin 40 mg tablet See Rx Instructions .Route 08/09/24 01/19/25 Rx .COMPLEX #90 tabs baclofen 10 mg tablet 10 mg PO TID PRN muscle spasm #270 08/14/24 01/19/25 Rx tabs gabapentin 600 mg tablet 900 mg (1.5 x 600 mg) PO TID 90 09/30/24 01/19/25 Rx days #405 tabs alprazolam 1 mg tablet (Xanax) 1 mg PO TID PRN anxiety #30 tabs 11/10/24 01/19/25 Rx metoprolol succinate 50 mg 50 mg PO DAILY #90 tabs 11/10/24 01/19/25 Rx tablet,extended release 24 hr zolpidem 10 mg tablet 10 mg PO QHS PRN insomnia #90 tabs 11/24/24 01/19/25 Rx fluticasone 250 mcg-salmeterol 50 1 inh inhalation BID #60 ea 12/04/24 12/04/24 Rx mcg/dose blistr powdr for inhalation (Wixela Inhub) tramadol 50 mg tablet 100 mg (2 x 50 mg) PO Q8H PRN pain 01/18/25 01/19/25 Rx #90 tabs cholecalciferol (vitamin D3) 25 1,000 unit PO DAILY 01/19/25 01/19/25 History mcg (1,000 unit) capsule (Vitamin D3) losartan 50 mg tablet 50 mg PO DAILY #90 tabs 01/19/25 01/19/25 Rx Allergies Allergy/AdvReac Type Severity Reaction Status Date / Time No Known Allergies Allergy Verified 01/19/25 17:39 Vital Signs Vital Signs - 24 hr 01/19/25 11:37 01/19/25 13:56 01/19/25 18:04 Temperature 96.9 F L Pulse Rate 68 67 Respiratory Rate 22 H 20 Blood Pressure 159/91 H Pulse Oximetry 92 94 Oxygen Delivery Room Air Room Air Exam Narrative: General: alert and comfortable Eyes: EOMI, PERRLA ENNT External ears normal, Neck is supple, no masses, Respiratory systems: Clear to auscultation Cardiovascular S1, S2, normal rhythm, no murmur, rub, or gallop; no thrill or palpable murmurs on palpation. Gastrointestinal: soft, non-tender, and non-distended abdomen with no masses; BS present Skin: no rash, lesions, ulcerations, subcutaneous nodules or induration Musculoskeletal: no abnormality and no tenderness, normal ROM Neurologic: Alert and oriented x3, non focal Mental Status Exam: normal affect H&P: Results Labs Labs: Short CBC 01/19/25 Range/Units 13:51 WBC 8.1 (4.5-10.0) K/mm3 Hgb 12.4 (12.0-15.0) g/dL Hct 39.2 (37.0-47.0) % Plt Count 316 (150-375) k/mm3 BMP 01/19/25 13:51 Sodium 142 Potassium 4.0 Chloride 104 Carbon Dioxide 28 BUN 12 Creatinine 0.80 Glucose 110 Calcium 9.6 Liver Function 01/19/25 Range/Units 13:51 Total Bilirubin 0.4 (0.2-1.3) mg/dL AST 27 (14-36) U/L ALT 17 (6-35) U/L Alkaline Phosphatase 94 (38-126) U/L Albumin 4.0 (3.5-5.1) g/dL Assessment and Plan Assessment and plan (1) Pleural effusion on left: Code(s): J90 - Pleural effusion, not elsewhere classified Status: Acute (2) Left rib fracture: Code(s): S22.32XA - Fracture of one rib, left side, initial encounter for closed fracture Status: Acute Plan Left pleural effusion r/o Pneumonia, malignancy , hemathorax vs inflammatory from rib fracture CT chest reviewed thoracentesis ordered, pleural fluid studies including culture and cytology ordered blood cultures, MRSA Started on Levaquin Monitor Fall with left rib fracture CT chest showed left 8th rib fracture fall was mechanical on staircase and patient denies any loss of consciousness PT/OT HTN continue home meds chronic back pain continue home Tramadol Sjogren syndrome Continue pilocarpine Left knee OA prior right knee replacement, following wiht orhto and she is being worked up for left knee replacement COPD continue duoneb DVT prophylaxis on SCDs, no AC until after thoracentesis tomorrow Full code SDM: Ghazala Almendarez, daughter Hospitalist MIPS Advance Care Plan I have confirmed that the patient's Advanced Care Plan is present, code status is documented, or surrogate decision maker is listed in patient medical record.: Yes Medication Reconciliation I have utilized all available resources to obtain, update and review the patients current medications (includes all prescriptions, OTC, herbals, cannabis, and nutritional supplements).: Yes
[2025-01-19 19:24] LABS: Lactate Dehydrogenase 211 U/L (120-246)
[2025-01-19 20:09] LABS: MRSA (PCR) NOT DETECTED (NOT DETECTE)
[2025-01-19] MEDS: traMADol HCL (*CRX) 50 MG TABLET 100 MG PO (20:44)
[2025-01-19] MEDS: levoFLOXacin 750 MG/D5W 150 ML 750 MG/150 ML BAG 100 MG IVPB (20:45)
[2025-01-19 20:50] VITALS: BP 151/84; PULSE 72; RESP 16; TEMP 36.5; O2SAT 95
--- NOTE | 2025-01-19 21:10 | PHAR ---
PT'S HOME MED PILOCARPINE 5 MG TABLET VERIFIED BY PHARMACY
[2025-01-19] MEDS: PRAVASTATIN SODIUM 20 MG TABLET 40 MG BY MOUTH (22:29)
[2025-01-19] MEDS: GABAPENTIN 300 MG CAPSULE 900 MG PO (22:29)
[2025-01-19] MEDS: PILOCARPINE HCL 5 MG 1 EACH PO (22:30)
[2025-01-19] MEDS: ZOLPIDEM TARTRATE (*CRX) 5 MG TABLET 10 MG PO (22:30)
[2025-01-20] VITALS (7 sets, daily range): BP systolic 115–154; BP diastolic 72–81; PULSE 71–88; RESP 18–20; TEMP 36.4–37; O2SAT 90–93
[2025-01-20 06:24] LABS: Basophils Absolute Auto 0.1 K/mm3 (0.0-0.1); Basophils Percent Auto 0.6 % (0.2-1.2); Eosinophils Absolute Auto 0.4 K/mm3 (0-0.3); Eosinophils Percent Auto 4.8 % (0-4.4); Hematocrit 38.1 % (37.0-47.0); Immature Granulocyte Absolute 0.02 K/mm3 (0.00-0.031); Immature Granulocyte Percent A 0.2 % (0-0.5); Lymphocytes Absolute Auto 1.37 K/mm3 (0.9-3.2); Lymphocytes Percent Auto 15.6 % (18.3-44.2); Mean Corpuscular HGB Conc 31.5 g/dl (32-36); Mean Corpuscular Hemoglobin 30.9 pg (26-34); Mean Corpuscular Volume 98.2 fl (80-100); Mean Platelet Volume 9.2 fl (7.4-10.4); Monocytes Absolute Auto 0.8 K/mm3 (0.1-0.6); Monocytes Percent Auto 9.5 % (2.6-8.5); Neutrophils Absolute Auto 6.1 K/mm3 (1.3-6.7); Neutrophils Percent Auto 69.3 % (45.5-73.1); Platelet Count Result 293 k/mm3 (150-375); Red Blood Count 3.88 M/mm3 (4.2-5.4); Red Cell Distribution Width 13.4 % (11.5-14.5); White Blood Count 8.8 K/mm3 (4.5-10.0)
[2025-01-20 06:35] LABS: Lactic Acid Reflex 0.8 mmol/L (0.7-2.0)
[2025-01-20 06:40] LABS: Alanine Aminotransferase 15 U/L (6-35); Albumin Level 4.1 g/dL (3.5-5.1); Alkaline Phosphatase 75 U/L (38-126); Anion Gap 8 mmol/L (4-12); Aspartate Amino Transferase 27 U/L (14-36); Bilirubin,Total 0.6 mg/dL (0.2-1.3); Blood Urea Nitrogen 10 mg/dL (7-17); Carbon Dioxide 27 mmol/L (22-30); Chloride 102 mmol/L (98-107); Estimated CRCL calculation 84 ml/min; Estimated Glomerular Filt Rate > 60; Glucose 117 mg/dL (65-110); Magnesium 1.8 mg/dL (1.6-2.3); Potassium 4.4 mmol/L (3.4-5.0); Sodium 137 mmol/L (137-145); Total Protein 7.2 g/dL (6.3-8.2)
[2025-01-20] MEDS: DULoxetine HCL 60 MG CAPSULE.DR PO (08:39)
[2025-01-20] MEDS: LOSARTAN POTASSIUM 50 MG TABLET PO (08:39)
[2025-01-20] MEDS: METOPROLOL SUCCINATE EXT REL 50 MG TABCR PO (08:39)
[2025-01-20] MEDS: PILOCARPINE HCL 5 MG 1 EACH PO ×4 (08:40→20:27)
[2025-01-20] MEDS: buPROPion HCL XL (24 HR) 150 MG TABCR 300 MG BY MOUTH (10:07)
[2025-01-20] MEDS: LORATADINE 10 MG TABLET PO (10:07)
[2025-01-20] MEDS: CHOLECALCIFEROL (VITAMIN D3) 25 MCG (1,000 UNITS) TABLET PO (10:07)
[2025-01-20] MEDS: LEVOTHYROXINE SODIUM 125 MCG TABLET PO (10:07)
--- NOTE | 2025-01-20 10:45 | CY_PTH ---
PATIENT: Gail Almendarez LOC: [id number] U#:[id number] AGE/SX: 69/F ROOM: 340 RE01/19/[address]: Sherwin Nunez MD : [id number] BED: 01 DIS: 01/21/2025 SPEC #: [id number] RECD: 01/22/25 07:26 STATUS: [place] REQ #: [id number] ROSE: 01/20/25 10:[address]: Antonio Medina DEPT: [facility] Cytology RECD BY: Eboni Mcgarry ENTERED: 01/22/25 07:30 SP TYPE: Cytology OTHR DR: Mor Anderson MD Tissues: A - Pleural Fluid Procedures: Hematoxylin and Eosin Stain Cell Block Cytopathology Cytospin
[2025-01-20 11:31] LABS: pH Pleural Fluid 7.291 (7.210-7.500)
[2025-01-20] MEDS: traMADol HCL (*CRX) 50 MG TABLET 100 MG PO ×2 (11:34→20:29)
--- NOTE | 2025-01-20 11:59 | PM.IMPN ---
Progress Note: A&P Assessment and Plan (1) Pleural effusion on left: Code(s): J90 - Pleural effusion, not elsewhere classified Status: Acute Assessment and Plan: Chest CT showed: Moderate pleural effusion with left basilar atelectasis. No pneumothorax. Mild subcutaneous emphysema along left chest wall.Acute fracture the lateral left eighth rib. Thoracentesis today. 900 ml of bloody dark maroon colored fluid removed. Pleural fluid samples sent. Levaquin 750 mg IVPB daily. Sputum culture pending. Blood cultures no growth to date. Sa0 91% on 1 liter nasal cannula. (2) Left rib fracture: Code(s): S22.32XA - Fracture of one rib, left side, initial encounter for closed fracture Status: Acute Assessment and Plan: Chest CT showed: Acute fracture the lateral left eighth rib. Pain regimen. (3) COPD (chronic obstructive pulmonary disease): Qualifiers: COPD type: unspecified COPD Qualified Code(s): J44.9 - Chronic obstructive pulmonary disease, unspecified Code(s): J44.9 - Chronic obstructive pulmonary disease, unspecified Status: Acute Assessment and Plan: Advair 2 puffs BID. Plan Full code SDM: Ghazala Almendarez, daughter Subjective Date/time seen: 01/20/25 11:59 Interval history: Patient came back from her thoracentesis with bilateral shoulder pain that was a 10, constant, and aching. Patient denies chest pain, palpitations, headache, dizziness, nausea, or vomiting. Review of Systems Review of Systems: All systems reviewed & are unremarkable except as noted in HPI and below Exam Const: General: no acute distress and uncomfortable Resp: Effort & Inspection: normal respiratory effort Auscultation: clear to auscultation bilaterally Cardio: Rate: regular rate Rhythm: regular rhythm GI: GI Palp: Yes Soft to palpation Auscultation: normal bowel sounds Neuro: Speech: normal speech Extrem: General: no pedal edema Psych: Mental Status: mental status grossly normal Affect: normal affect Objective Data Vital Signs Vital Signs: Vital Signs - 24 hr 01/19/25 13:56 01/19/25 18:04 01/19/25 20:40 Temperature Pulse Rate 67 Respiratory Rate 20 Blood Pressure Pulse Oximetry 94 Oxygen Delivery Room Air Room Air 01/19/25 20:50 01/20/25 04:02 01/20/25 08:39 Temperature 97.7 F 97.6 F Pulse Rate 72 88 86 Respiratory Rate 16 18 Blood Pressure 151/84 H 154/81 H Pulse Oximetry 95 93 Oxygen Delivery Intake/Output Intake/Output: Intake & Output 01/17/25 01/18/25 01/19/25 01/20/25 23:59 23:59 23:59 23:59 Intake Total 870 300 Output Total 900 Balance 870 -600 Meds/Results Medications: Active Medications Generic Name Dose Route Start Last Admin Trade Name Freq PRN Reason Stop Dose Admin Albuterol 1 puff 01/19/25 18:25 Albuterol Sulfate (*Sp) Aerosol 1 Puff INHALATION Q6H PRN shortness of breath or wheezing Alprazolam 1 mg 01/19/25 18:25 Alprazolam (*Crx) 0.5 Mg Tablet PO TID PRN anxiety Bupropion HCl 300 mg 01/20/25 09:20 01/20/25 10:07 Bupropion Hcl Xl (24 Hr) 150 Mg Tabcr BY MOUTH 300 mg QAM RADHA Administration Duloxetine HCl 60 mg 01/20/25 09:00 01/20/25 08:39 Duloxetine Hcl 60 Mg Capsule.Dr PO 60 mg DAILY RADHA Administration Gabapentin 900 mg 01/19/25 22:00 01/20/25 07:27 Gabapentin 300 Mg Capsule PO Not Given Q8HR RADHA Levofloxacin/Dextrose 750 mg in 150 mls @ 100 mls/hr 01/19/25 20:00 01/19/25 22:15 Levaquin 750 Mg/D5w 150 Ml IVPB Infused Q24H RADHA Infusion Levothyroxine Sodium 125 mcg 01/20/25 09:25 01/20/25 10:07 Levothyroxine Sodium 125 Mcg Tablet PO 125 mcg DAILY@0630 RADHA Administration Loratadine 10 mg 01/20/25 09:00 01/20/25 10:07 Loratadine 10 Mg Tablet PO 02/20/25 08:59 10 mg DAILY RADHA Administration Losartan Potassium 50 mg 01/20/25 09:00 01/20/25 08:39 Losartan Potassium 50 Mg Tablet PO 50 mg DAILY RADHA Administration Metoprolol Succinate 50 mg 01/20/25 09:00 01/20/25 08:39 Metoprolol Succinate Ext Rel 50 Mg Tabcr PO 50 mg DAILY RADHA Administration Non-Formulary ( 1 each 01/19/25:15 01/20/25 08:40 Pilocarpine Hcl 5 Mg PO 02/18/25 21:14 1 each Oral Tablet) QID RADHA Administration Pravastatin Sodium 40 mg 01/19/25 21:10 01/19/25 22:29 Pravastatin Sodium 20 Mg Tablet BY MOUTH 40 mg HS RADHA Administration Fluticasone/Salmeterol 2 puff 01/20/25 09:30 Fluticasone/Salmeterol 115-21 Mcg Inhaler 1 Puff INHALATION Q12HRT [facility] Tramadol HCl 100 mg 01/19/25 18:25 01/20/25 11:34 Tramadol Hcl (*Crx) 50 Mg Tablet PO 100 mg Q8H PRN Administration PAIN RATED 4-6 Vitamin D 25 mcg 01/20/25 09:25 01/20/25 10:07 Cholecalciferol (Vitamin D3) 25 Mcg (1,000 Units) Tablet PO 25 mcg DAILY RADHA Administration Zolpidem Tartrate 10 mg 01/19/25 21:12 01/19/25 22:30 Zolpidem Tartrate (*Crx) 5 Mg Tablet PO 10 mg QHS PRN Administration insomnia Radiology Results: ITS Impressions Chest CT 01/19/25 13:42 Impression: Acute fracture the lateral left eighth rib. Moderate left pleural effusion and left basilar atelectasis. No pneumothorax. Mild subcutaneous emphysema along left chest wall. Cholelithiasis. Chest X-Ray 01/20/25 11:27 IMPRESSION: 1. Decreased small left pleural effusion postthoracentesis. 2. Opacities at the left lower lung zone consistent with associated atelectasis and likely lateral left chest wall hematoma associated with previous noted left-sided rib fractures. Thoracentesis Ultrasound 01/20/25 11:32 IMPRESSION: 1. Successful ultrasound-guided thoracentesis yielding 900 mL of bloody, dark maroon-colored fluid. Labs Labs: Laboratory Results - last 24 hr 01/19/25 01/19/25 01/19/25 13:51 18:53 19:09 WBC 8.1 RBC 4.05 L Hgb 12.4 Hct 39.2 MCV 96.8 MCH 30.6 MCHC 31.6 L RDW 13.1 Plt Count 316 MPV 8.9 Immature Gran % (Auto) 0.2 Neut % (Auto) 64.6 Lymph % (Auto) 19.9 [place] % (Auto) 8.7 H Eos % (Auto) 5.7 H Baso % (Auto) 0.9 Lymph # (Auto) 1.61 [place] # (Auto) 0.7 H Eos # (Auto) 0.5 H Baso # (Auto) 0.1 Abs Immat Gran (auto) 0.02 Absolute Neuts (auto) 5.2 Absolute Nucleated RBC 0.000 Nucleated RBC % 0.0 PT 13.4 INR 1.0 Sodium 142 Potassium 4.0 Chloride 104 Carbon Dioxide 28 Anion Gap 10 BUN 12 Creatinine 0.80 Estim Creat Clear Calc 83 Estimated GFR > 60 Glucose 110 Lactic Acid Calcium 9.6 Magnesium Total Bilirubin 0.4 AST 27 ALT 17 Alkaline Phosphatase 94 Lactate Dehydrogenase 217 211 Total Protein 7.4 Albumin 4.0 Amylase 50 Pleural pH Nasal MRSA (PCR) Not detected 01/20/25 01/20/25 05:52 11:10 WBC 8.8 RBC 3.88 L Hgb 12.0 Hct 38.1 MCV 98.2 MCH 30.9 MCHC 31.5 L RDW 13.4 Plt Count 293 MPV 9.2 Immature Gran % (Auto) 0.2 Neut % (Auto) 69.3 Lymph % (Auto) 15.6 L [place] % (Auto) 9.5 H Eos % (Auto) 4.8 H Baso % (Auto) 0.6 Lymph # (Auto) 1.37 [place] # (Auto) 0.8 H Eos # (Auto) 0.4 H Baso # (Auto) 0.1 Abs Immat Gran (auto) 0.02 Absolute Neuts (auto) 6.1 Absolute Nucleated RBC 0.000 Nucleated RBC % 0.0 PT INR Sodium 137 Potassium 4.4 Chloride 102 Carbon Dioxide 27 Anion Gap 8 BUN 10 Creatinine 0.79 Estim Creat Clear Calc 84 Estimated GFR > 60 Glucose 117 H Lactic Acid 0.8 Calcium 9.0 Magnesium 1.8 Total Bilirubin 0.6 AST 27 ALT 15 Alkaline Phosphatase 75 Lactate Dehydrogenase Total Protein 7.2 Albumin 4.1 Amylase Pleural pH 7.291 Nasal MRSA (PCR) Quality VTE Prophylaxis VTE prophylaxis: mechanical ordered
[2025-01-20 12:15] LABS: Appearance Pleural Fluid Bloody (Clear); Color Pleural Fluid Red (Colorless); Pleural fluid source Pleural fluid
[2025-01-20 12:17] LABS: Lymphocytes Pleural Fluid 16 %; Macrophages Pleural Fluid 31 %; Mesothelial Cells Pleural Flui 7 %; Monocytes Pleural Fluid 1 %; Neutrophils Pleural Fluid 40 % (0-25); Other Cells Pleural Fluid 5 %
[2025-01-20] MEDS: GABAPENTIN 300 MG CAPSULE 900 MG PO ×2 (13:29→20:28)
[2025-01-20] MEDS: SIMETHICONE 125 MG CHEW TAB PO (15:02)
[2025-01-20] MEDS: FLUTICASONE/SALMETEROL 115-21 MCG INHALER 1 PUFF 2 PUFF INHALATION (19:56)
[2025-01-20] MEDS: levoFLOXacin 750 MG/D5W 150 ML 750 MG/150 ML BAG 100 MG IVPB (20:26)
[2025-01-20] MEDS: ZOLPIDEM TARTRATE (*CRX) 5 MG TABLET 10 MG PO (20:28)
[2025-01-20] MEDS: PRAVASTATIN SODIUM 20 MG TABLET 40 MG BY MOUTH (20:29)
[2025-01-21 06:00] VITALS: BP 129/71; PULSE 78; RESP 20; O2SAT 92
[2025-01-21] MEDS: GABAPENTIN 300 MG CAPSULE 900 MG PO ×2 (06:09→13:13)
[2025-01-21] MEDS: LEVOTHYROXINE SODIUM 125 MCG TABLET PO (06:09)
[2025-01-21 08:10] LABS: Basophils Absolute Auto 0.1 K/mm3 (0.0-0.1); Basophils Percent Auto 0.8 % (0.2-1.2); Eosinophils Absolute Auto 0.5 K/mm3 (0-0.3); Eosinophils Percent Auto 5.7 % (0-4.4); Hematocrit 37.9 % (37.0-47.0); Hemoglobin 11.8 g/dL (12.0-15.0); Immature Granulocyte Absolute 0.03 K/mm3 (0.00-0.031); Immature Granulocyte Percent A 0.4 % (0-0.5); Lymphocytes Absolute Auto 1.45 K/mm3 (0.9-3.2); Lymphocytes Percent Auto 18.5 % (18.3-44.2); Mean Corpuscular HGB Conc 31.1 g/dl (32-36); Mean Corpuscular Hemoglobin 30.5 pg (26-34); Mean Corpuscular Volume 97.9 fl (80-100); Mean Platelet Volume 9.1 fl (7.4-10.4); Monocytes Absolute Auto 0.8 K/mm3 (0.1-0.6); Monocytes Percent Auto 10.2 % (2.6-8.5); Neutrophils Absolute Auto 5.1 K/mm3 (1.3-6.7); Neutrophils Percent Auto 64.4 % (45.5-73.1); Platelet Count Result 286 k/mm3 (150-375); Red Blood Count 3.87 M/mm3 (4.2-5.4); Red Cell Distribution Width 13.4 % (11.5-14.5); White Blood Count 7.9 K/mm3 (4.5-10.0)
[2025-01-21] MEDS: FLUTICASONE/SALMETEROL 115-21 MCG INHALER 1 PUFF 2 PUFF INHALATION (08:26)
[2025-01-21 08:27] VITALS: O2SAT 92
[2025-01-21 09:02] LABS: Alanine Aminotransferase 15 U/L (6-35); Albumin Level 3.8 g/dL (3.5-5.1); Alkaline Phosphatase 77 U/L (38-126); Anion Gap 8 mmol/L (4-12); Aspartate Amino Transferase 26 U/L (14-36); Bilirubin,Total 0.6 mg/dL (0.2-1.3); Blood Urea Nitrogen 11 mg/dL (7-17); Calcium 9.2 mg/dL (8.4-10.2); Carbon Dioxide 31 mmol/L (22-30); Chloride 100 mmol/L (98-107); Estimated CRCL calculation 81 ml/min; Estimated Glomerular Filt Rate > 60; Glucose 120 mg/dL (65-110); Potassium 4.3 mmol/L (3.4-5.0); Sodium 139 mmol/L (137-145); Total Protein 6.9 g/dL (6.3-8.2)
[2025-01-21] MEDS: traMADol HCL (*CRX) 50 MG TABLET 100 MG PO (09:34)
[2025-01-21] MEDS: DULoxetine HCL 60 MG CAPSULE.DR PO (09:36)
[2025-01-21] MEDS: SIMETHICONE 125 MG CHEW TAB PO (09:36)
[2025-01-21] MEDS: buPROPion HCL XL (24 HR) 150 MG TABCR 300 MG BY MOUTH (09:36)
[2025-01-21 09:37] VITALS: PULSE 70
[2025-01-21] MEDS: METOPROLOL SUCCINATE EXT REL 50 MG TABCR PO (09:37)
[2025-01-21] MEDS: LOSARTAN POTASSIUM 50 MG TABLET PO (09:39)
[2025-01-21] MEDS: CHOLECALCIFEROL (VITAMIN D3) 25 MCG (1,000 UNITS) TABLET PO (09:39)
[2025-01-21] MEDS: LORATADINE 10 MG TABLET PO (09:40)
[2025-01-21] MEDS: PILOCARPINE HCL 5 MG 1 EACH PO ×2 (09:40→13:13)
--- NOTE | 2025-01-21 12:03 | PM.DS ---
DS: Admitting Diagnosis Discharge Date 01/21/2025 Admitting Diagnosis Fall, left sided rib pain. DS: Discharge Diagnosis Discharge Diagnosis (1) Pleural effusion on left: Code(s): J90 - Pleural effusion, not elsewhere classified Status: Acute (2) Left rib fracture: Code(s): S22.32XA - Fracture of one rib, left side, initial encounter for closed fracture Status: Acute (3) COPD (chronic obstructive pulmonary disease): Qualifiers: COPD type: unspecified COPD Qualified Code(s): J44.9 - Chronic obstructive pulmonary disease, unspecified Code(s): J44.9 - Chronic obstructive pulmonary disease, unspecified Status: Acute DS: Summary Hospital Course Hospital Course: Patient is a 69 year old female that had fallen a week prior. PCP done a chest X-ray that showed a pleural effusion. ER work up notable for BP 159/91, labs unremarkable, Ct chest showed acute left 8th rib fracture and moderate left pleural effusion and left basilar atelectasis. 01/20 Thoracentesis ultrasound performed: FINDINGS: Ultrasound images demonstrate a small to moderate-sized left pleural effusion and the catheter within the fluid. IMPRESSION: 1. Successful ultrasound-guided thoracentesis yielding 900 mL of bloody, dark maroon-colored fluid. Chest X-ray today showed: Findings: Small left pleural effusion present with left basilar atelectasis or edema. Right lung clear. Cardiomediastinal silhouette is stable. Bones and soft tissues are unremarkable. Impression: Small left pleural effusion with probable left basilar atelectasis or pulmonary edema. Correlate clinically for pneumonia. Blood cultures no growth to date. Pleural fluid pending. Status at Discharge Functional status at discharge: uses cane/walker Overall status at discharge: patient is progressing back to baseline Time Spent with Patient Time attestation: Total time spent providing and/or coordinating discharge services: Time spent: Greater than 30 minutes Exam Const: General: no acute distress Resp: Effort & Inspection: normal respiratory effort Other: Slightly diminished. No wheezes. Cardio: Rate: regular rate Rhythm: regular rhythm GI: GI Palp: Yes Soft to palpation Auscultation: normal bowel sounds Skin: Other: Bandaid intact to thoracentesis site, no drainage or swelling noted. Extrem: General: no pedal edema Psych: Mental Status: mental status grossly normal Affect: normal affect DS: Data Data Completed and Pending Pending studies at discharge: Pending at discharge 01/19/25 13:05 Cytology [PTH] Routine 01/19/25 18:33 Cytology [PTH] Routine Labs on day of discharge: Labs from last 24 hours 01/21/25 01/21/25 01/20/25 08:39 08:04 10:45 WBC 7.9 RBC 3.87 L Hgb 11.8 L Hct 37.9 MCV 97.9 MCH 30.5 MCHC 31.1 L RDW 13.4 Plt Count 286 MPV 9.1 Immature Gran % (Auto) 0.4 Neut % (Auto) 64.4 Lymph % (Auto) 18.5 [place] % (Auto) 10.2 H Eos % (Auto) 5.7 H Baso % (Auto) 0.8 Lymph # (Auto) 1.45 [place] # (Auto) 0.8 H Eos # (Auto) 0.5 H Baso # (Auto) 0.1 Abs Immat Gran (auto) 0.03 Absolute Neuts (auto) 5.1 Absolute Nucleated RBC 0.000 Nucleated RBC % 0.0 Sodium 139 Potassium 4.3 Chloride 100 Carbon Dioxide 31 H Anion Gap 8 BUN 11 Creatinine 0.82 Estim Creat Clear Calc 81 Estimated GFR > 60 Glucose 120 H Calcium 9.2 Magnesium 2.0 Total Bilirubin 0.6 AST 26 ALT 15 Alkaline Phosphatase 77 Total Protein 6.9 Albumin 3.8 Pleural Fluid Source Pleural fluid Pleural Color Red Pleural Appearance Bloody Pleural RBC TNP Pleural Nuc Cells TNP Pleural Neutrophils 40 H Pleural Lymphocytes 16 Pleural Monocytes 1 Pleural Macrophages 31 Pleural Mesothelial 7 Pleural Other Cells 5 Preliminary micro results at discharge 01/20/25 10:45 Anaerobic Culture - Preliminary Pleural Fluid 01/19/25 19:09 Blood Culture - Preliminary Blood 01/19/25 19:09 Blood Culture - Preliminary Blood Discharge Plan Discharge Attending physician on discharge: Sherwin Nunez Discharging Clinician: Daisy Dumont Anticipated Discharge Date/Time: 01/21/25 13:00 Patient Disposition: Home Activity: may shower and as tolerated Diet: heart healthy Discharge Instructions: Take inhalers as prescribed. Use incentive spirometer at least twice a day. Notify provider if you develop worsening shortness of breath not improved with rest and inhalers or a temp >101. Thank you for entrusting [facility] with your healthcare! Patient Instructions: Antibiotic Form, How to Use an Incentive Spirometer (DC), COPD (Chronic Obstructive Pulmonary Disease) (DC), Pleural Effusion (DC) Patient Language: Urdu Stand Alone Forms: General Discharge Information Follow-up/Referrals: oMr Anderson MD [Primary Care Provider] - 1 Week Discharge Medications: New amoxicillin-pot clavulanate 875-125 mg tablet 1 tablet PO Q12H Qty: 10 0RF Continued cetirizine [Zyrtec] 10 mg tablet 10 mg PO DAILY duloxetine 60 mg capsule,delayed release(DR/EC) 60 mg PO DAILY albuterol sulfate 90 mcg/actuation HFA aerosol inhaler 1 puff inhalation Q6H PRN (Reason: shortness of breath or wheezing) Qty: 8.5 2RF fluticasone propion-salmeterol [Wixela Inhub] 250-50 mcg/dose blister with device 1 inh inhalation BID Qty: 60 5RF Rx Instructions: rinse and spit cholecalciferol (vitamin D3) [Vitamin D3] 25 mcg (1,000 unit) capsule 1,000 unit PO DAILY levothyroxine 125 mcg tablet See Rx Instructions .ROUTE .COMPLEX Qty: 90 2RF Dose Instruction: TAKE 1 TABLET BY MOUTH EVERY DAY Rx Instructions: TAKE 1 TABLET BY MOUTH EVERY DAY pilocarpine HCl 5 mg tablet See Rx Instructions .ROUTE .COMPLEX Qty: 360 2RF Dose Instruction: TAKE 1 TABLET BY MOUTH FOUR TIMES DAILY FOR 90 DAYS Rx Instructions: TAKE 1 TABLET BY MOUTH FOUR TIMES DAILY FOR 90 DAYS hydroxychloroquine 200 mg tablet 200 mg PO BID Qty: 180 2RF bupropion HCl 300 mg tablet extended release 24 hr See Rx Instructions .ROUTE .COMPLEX Qty: 90 2RF Dose Instruction: TAKE 1 TABLET BY MOUTH EVERY DAY IN THE MORNING Rx Instructions: TAKE 1 TABLET BY MOUTH EVERY DAY IN THE MORNING pravastatin 40 mg tablet See Rx Instructions .ROUTE .COMPLEX Qty: 90 2RF Dose Instruction: TAKE 1 TABLET BY MOUTH EVERY DAY Rx Instructions: TAKE 1 TABLET BY MOUTH EVERY DAY baclofen 10 mg tablet 10 mg PO TID PRN (Reason: muscle spasm) Qty: 270 1RF gabapentin 600 mg tablet 900 mg PO TID 90 Days Qty: 405 1RF metoprolol succinate 50 mg tablet extended release 24 hr 50 mg PO DAILY Qty: 90 2RF alprazolam [Xanax] 1 mg tablet 1 mg PO TID PRN (Reason: anxiety) Qty: 30 0RF zolpidem 10 mg tablet 10 mg PO QHS PRN (Reason: insomnia) Qty: 90 0RF tramadol 50 mg tablet 100 mg PO Q8H PRN (Reason: pain) Qty: 90 0RF losartan 50 mg tablet 50 mg PO DAILY Qty: 90 1RF Date of admission: 01/19/25 14:30 Primary Care Provider: Mor Anderson Admitting Provider: Antonio Medina Attending physician on admission: Antonio Medina Condition: Improved Hospitalist MIPS Heart Failure (Exclusion) Patient has history of Heart Transplant or Left Ventricular Assistive Device?: No IF YES, STOP HERE Heart Failure (Qualifier) Patient has current or prior documentation of LVEF less than or equal to 40%, or mod/servere depressed LVSF?: No IF NO, STOP HERE
[2025-01-23 07:52] LABS: Glucose Pleural Fluid. 23 mg/dL
== END 2025-01-21 13:49 | disposition home or self-care (01) ==
LOC: ANHED 14:40 → ANH3MED 16:50
PROVIDERS: Nurse Practitioner Family; Admitting Provider Internal Medicine; Emergency Provider Emergency Medicine; PCP Family Medicine; Visit Provider General Practice
DX: J90 Pleural effusion, not elsewhere classified (principal); S22.32XA Fracture of one rib, left side, initial encounter for closed fracture; W01.0XXA Fall on same level from slipping, tripping and stumbling without subsequent striking against object, initial encounter; J44.9 Chronic obstructive pulmonary disease, unspecified; I10 Essential (primary) hypertension; M54.9 Dorsalgia, unspecified; G89.29 Other chronic pain; F41.9 Anxiety disorder, unspecified; M35.00 Sjogren syndrome, unspecified; M17.12 Unilateral primary osteoarthritis, left knee; Z79.51 Long term (current) use of inhaled steroids; Z79.899 Other long term (current) drug therapy; Z87.891 Personal history of nicotine dependence; Z96.651 Presence of right artificial knee joint
CPT/HCPCS: 32555; 36415; 71045; 71250; 80053; 82042; 82150; 82945; 83605; 83615; 83735; 83986; 84157; 85025; 85610; 87040; 87070; 87075; 87205; 87641; 88108; 88305; 89051; 94640; 96365; 96366; 99285; A9270; G0378; J1956

== ENCOUNTER 2025-05-23 10:28 | Outpatient (CLI) | payer OTHER, SELFPAY ==
--- NOTE | ~2025-05-23 | DEXA_ITS ---
Bone Density Report Name: JENI GUDINO Age: 69 Sex: Female Ethnicity: White Date of : 1955 Indication: postmenopausal; screening for osteoporosis; height loss; prior fracture; asthma or emphysema; hysterectomy; Referring Provider: KODAK MOFFETT Study: Bone densitometry was performed. Exam Date: May 23, 2025 Accession number: [id number] Bone Density: Region BMD T-score Z-score Classification AP Spine(L1, L2, L3) 1.375 3.2 5.2 Normal World Health Organization criteria for BMD impression classify patients as: Normal (T-score at or above -1.0), Osteopenia (T-score between -1.0 and -2.5), or Osteoporosis (T-score at or below -2.5). Previous Exams: -- Region Exam Age BMD T-score BMD Change BMD Change Date g/cm2 vs Baseline vs Previous -- AP Spine (L1-L3) 05/23/2025 69 1.375 3.2 13.7%# 13.7%# 05/01/2016 60 1.210 1.7 -- *Denotes significance at 95% confidence level, LSC for AP Spine = 0.022 g/cm2 # Denotes dissimilar scan types or analysis methods Clinical Information Provided by Patient: Has had a low trauma fracture Has used the following medications: Vitamin D, Calcium Has the following medical conditions: Asthma or Emphysema, Hysterectomy Patient maximum height was 67 Menopause Age: 44 No regular weight bearing exercise Onset of menses at age 14 Number of children 1 Impression: The patient has normal bone mass. The patient has risk factors, including: previous fracture. Unable to evaluate interval change due to the use of different scan modes. Discussion: LOW RISK OF FRACTURE; BONE DENSITY IS WELL ABOVE THE MINIMUM DESIRABLE LEVEL AND ABOVE AVERAGE FOR AGE AND SEX AT ALL SKELETAL SITES TESTED. This person's bone density is above expected limits for age and sex. This is rarely clinically significant, but should be pursued if there are significant musculoskeletal complaints. The patient should follow a healthful lifestyle (good nutrition with adequate calcium and vitamin D, and appropriate weight-bearing exercise). Follow-Up: Consider repeating this study in 5 years or sooner if there is some new clinical indication. Reported by: JELLY on 05/23/2025 10:53:00 AM. Reviewed, dictated and finalized at location A.
== END 2025-05-23 10:29 | disposition home or self-care (01) ==
LOC: MICIMG 10:29
PROVIDERS: PCP Family Medicine
DX: Z78.0 Asymptomatic menopausal state (principal)
CPT/HCPCS: 77080